=== PATIENT | male | born 1965 | race Caucasian/White ===

== ENCOUNTER 2021-10-15 03:56 | Inpatient (IN) | payer MEDICARE ==
[2021-10-15] MEDS ORDERED: HYDROmorphone 1 MG/ML 1 ML SYRINGE IVP STA (05:03)
[2021-10-15] MEDS ORDERED: AMPICILLIN-SULBACTAM 3 GM in SODIUM CHLORIDE 0.9% 100 ML IVPB STA (05:42)
[2021-10-15] MEDS ORDERED: SODIUM CHLORIDE 0.9% 1,000 ML IV STA (05:43)
[2021-10-15] MEDS ORDERED: MAG HYDROX/AL HYDROX/SIMETH 30 ML CUP PO PRN (06:10)
[2021-10-15] MEDS ORDERED: ACETAMINOPHEN TAB 325 MG TAB PO PRN (06:10)
[2021-10-15] MEDS ORDERED: NALOXONE 0.4 MG/ML 1 ML VIAL IV PRN (06:10)
--- NOTE | 2021-10-15 06:33 | ED ---
Skin/Abscess/FB HPI - General Chief complaint: Skin/Abscess/Foreign Body Stated complaint: rt facial swelling Time Seen by Provider: 10/15/21 04:28 Source: EMS Mode of arrival: EMS - History of Present Illness Initial comments: This patient is a 56-year-old man who presents as a transfer from the [facility]. The patient had gone there to be evaluated this evening for right-sided neck swelling and pain. The patient states that the symptoms had come on a little over one week ago. As a progressively get worse he went to see one of the local nose and throat specialists, . Patient was given prescription for oral antibiotic and prednisone. The patient was also to follow up for a computed tomography scan of the neck. His symptoms continued to progressively worsen and he went to the other facility tonight. Patient was then transferred here given the degree of swelling to his right neck to have further evaluation and treatment. MD complaint: abscess/boil -: days(s) Tetanus Up to Date: yes Location: neck Severity: moderate Quality: aching, constant Consistency: constant Improves with: none Worsens with: palpation Associated symptoms: denies other symptoms Treatments Prior to Arrival: none - Related Data Home Medications Medication Instructions Recorded Confirmed Albuterol Sulfate [Albuterol 2 puff PO RT-Q6H PRN 10/15/21 10/15/21 Sulfate Hfa] Aspirin EC [Ecotrin Low Dose] 81 mg PO DAILY 10/15/21 10/15/21 Buprenorphine HCl/Naloxone HCl 0.25 film SL 5XD 10/15/21 10/15/21 [Suboxone 8 mg-2 mg Sl Film] Fenofibrate 160 mg PO DAILY 10/15/21 10/15/21 Furosemide [Lasix] 40 mg PO DAILY 10/15/21 10/15/21 Gabapentin [Neurontin] 800 mg PO TID 10/15/21 10/15/21 Metoprolol Succinate [Toprol XL] 100 mg PO BID 10/15/21 10/15/21 Multivit-Min/FA/Lycopen/Lutein 1 tab PO DAILY 10/15/21 10/15/21 [Centrum Silver Men Tablet] Glady-3 Acid Ethyl Esters [Lovaza] 1 gm PO QID 10/15/21 10/15/21 Potassium Chloride ER [K-Dur 20] 20 meq PO DAILY 10/15/21 10/15/21 Promethazine [Phenergan] 25 mg PO Q6HR PRN 10/15/21 10/15/21 Sulfamethox-Tmp 800-160Mg [Bactrim 1 tab PO BID 10/15/21 10/15/21 DS 800-160 mg] predniSONE [Deltasone] 20 mg PO DAILY 10/15/21 10/15/21 sitaGLIPtin PHOSPHATE [Januvia] 100 mg PO DAILY 10/15/21 10/15/21 Allergies Allergy/AdvReac Type Severity Reaction Status Date / Time alcohol Allergy Unknown Verified 10/15/21 10:57 cefoxitin [From Mefoxin] Allergy Unknown Verified 10/15/21 10:57 cephalexin [From Keflex] Allergy Unknown Verified 10/15/21 10:57 egg Allergy Dyspnea Verified 10/15/21 10:57 honey Allergy Rash/Hives Verified 10/15/21 10:57 morphine Allergy Anaphylaxis Verified 10/15/21 10:57 Review of Systems ROS Statement: Those systems with pertinent positive or pertinent negative responses have been documented in the HPI. ROS Other: All systems not noted in ROS Statement are negative. Constitutional: Denies: fever, chills, weakness Eyes: Denies: eye pain, vision change ENT: Denies: ear pain, throat pain, dental pain, congestion Respiratory: Denies: cough, dyspnea, wheezes Cardiovascular: Denies: chest pain Gastrointestinal: Reports: nausea, vomiting, diarrhea. Denies: abdominal pain, constipation, hematemesis, melena Genitourinary: Denies: dysuria, hematuria Musculoskeletal: Denies: back pain Skin: Denies: as per HPI Neurological: Denies: headache Psychiatric: Reports: as per HPI. Denies: depression Hematological/Lymphatic: Reports: as per HPI Past Medical History Past Medical History: Diabetes Mellitus, Hyperlipidemia, Hypertension Additional Past Medical History / Comment(s): acute intermittent porphyria Neuropathy, Liver cirrohsis History of Any Multi-Drug Resistant Organisms: None Reported Past Surgical History: Appendectomy, Cholecystectomy, Orthopedic Surgery Past Psychological History: No Psychological Hx Reported Smoking Status: Current every day smoker Past Alcohol Use History: None Reported Past Drug Use History: None Reported - Past Family History Father Family Medical History: CVA/TIA Mother Family Medical History: Diabetes Mellitus, Hypertension Sister(s) Family Medical History: Cancer Additional Family Medical History / Comment(s): 2 sisters had breast cancer General Exam General appearance: alert, in no apparent distress Head exam: Present: atraumatic, normocephalic Eye exam: Present: normal appearance, PERRL, EOMI, periorbital swelling. Absent: scleral icterus, conjunctival injection ENT exam: Present: normal oropharynx, other (To the anterior right neck, there is proximally 5 cm inframandibular mass with adjacent soft tissue swelling.) Neck exam: Present: tenderness, full ROM. Absent: meningismus Respiratory exam: Present: normal lung sounds bilaterally. Absent: respiratory distress, wheezes, rales, chest wall tenderness Cardiovascular Exam: Present: regular rate, normal rhythm, normal heart sounds. Absent: systolic murmur, diastolic murmur GI/Abdominal exam: Present: soft. Absent: distended, tenderness, guarding, rebound, rigid, mass Extremities exam: Present: normal inspection, normal capillary refill. Absent: pedal edema, calf tenderness Back exam: Present: normal inspection. Absent: CVA tenderness (R), CVA tenderness (L) Neurological exam: Present: alert Skin exam: Present: warm, dry, intact, normal color. Absent: rash Course Vital Signs 10/15/21 10/15/21 04:02 06:18 Temperature 99.1 F Pulse Rate 72 67 Respiratory 16 16 Rate Blood Pressure 142/93 143/81 O2 Sat by Pulse 98 95 Oximetry Medical Decision Making - Medical Decision Making Patient is a 56-year-old man transferred here from outside hospital to have evaluation of neck mass with associated swelling. It appears to be abscess versus possible necrotic lymph node. In addition there is what appears to be some secondary parotiditis. Patient is started on antibiotics and case discussed with ENT. Patient will be admitted. Disposition Clinical Impression: Abscess of lymph node of neck, Parotiditis Disposition: ADMITTED IP TO THIS HOSP Is patient prescribed a controlled substance at d/c from ED?: No
[2021-10-15] MEDS: HYDROmorphone 1 MG/ML 1 ML SYRINGE IVP PRN ×4 (08:27→20:52)
[2021-10-15] MEDS: SODIUM CHLORIDE 0.9% 1,000 ML IV SCH ×2 (08:27→18:10)
[2021-10-15] MEDS: FAMOTIDINE 20 MG TAB PO SCH ×2 (08:27→20:52)
[2021-10-15] MEDS: AMPICILLIN-SULBACTAM 3 GM in SODIUM CHLORIDE 0.9% 100 ML IVPB SCH ×2 (11:55→18:06)
[2021-10-15] MEDS: LACTATED RINGERS 1,000 ML IV SCH (15:17)
[2021-10-15] MEDS ORDERED: PROMETHAZINE 25 MG TAB PO PRN (16:24)
[2021-10-15] MEDS ORDERED: ALBUTEROL NEBULIZED 2.5 MG/3 ML INHALATION PRN (16:24)
[2021-10-15] MEDS: ACETAMINOPHEN IV (For NPO) 1,000 MG in EMPTY BAG 1 BAG IVPB SCH (16:42)
[2021-10-15] MEDS: DEXAMETHASONE SOD PHOSPHATE 10 MG/ML 1 ML VIAL IVP SCH (16:43)
[2021-10-15 16:57] LABS: Glucose,Whole Blood 100 mg/dL (75-99)
[2021-10-15] MEDS: INSULIN ASPART (NovoLOG) 100 UNIT/ML VIAL SQ SCH ×2 (17:13→21:59)
--- NOTE | 2021-10-15 17:14 | HP ---
HISTORY AND PHYSICAL DATE OF SERVICE: 10/15/2021 CHIEF COMPLAINT: Facial swelling on the right side. HISTORY OF PRESENT ILLNESS: This 56-year-old gentleman with a past medical history of diabetes mellitus, hypertension, hyperlipidemia, had previous episodes of sialadenitis. Currently the patient has had swelling of the right side of the face with 11 days. Because of lack of improvement, the patient went to [facility] Emergency Room and was admitted for evaluation and treatment. The patient was also evaluated by Dr. Mark; worsening of the possibility of salivary calculus causing the swelling and subsequent infection. Patient was started on broad-spectrum IV antibiotics as well as steroids. There is no history of any fever, rigor or chills. PAST MEDICAL HISTORY: History of diabetes mellitus, prediabetes, hypertension, hyperlipidemia. HOME MEDICATIONS: Reviewed. They include multivitamins and Ecotrin low-dose. Doses and other medications are reviewed. ALLERGIES: INCLUDE _ HONEY. FAMILY HISTORY: History of CVA, TIA. SOCIAL HISTORY: History of smoking. REVIEW OF SYSTEMS: Fourteen-point review of systems negative except as mentioned earlier. PHYSICAL EXAMINATION: Pulse is 69, blood pressure 144/86, respiration 16. HEENT: Significant swelling of the face on the right side with thickened indurated and tender parotid salivary gland, and also swelling extending up to the periorbital area. NECK: Part of the swelling present. CARDIOVASCULAR: S1, S2 muffled. RESPIRATION: Clear to auscultation. ABDOMEN: Soft, nontender. NERVOUS SYSTEM: No focal deficit. SKIN: No ulcer, rash, bleeding. JOINTS: No active deforming arthropathy. LABS: Recent labs are not available. ASSESSMENT: 1. Acute right parotid enlargement with acute parotitis secondary to salivary gland calculus, possibly. 2. Diabetes mellitus, type 2. 3. Hypertension. 4. Hyperlipidemia. 5. History of chronic liver disease. RECOMMENDATIONS AND DISCUSSION: In this 56-year-old gentleman who presented with multiple complex medical issues, I would recommend to continue the current medications. Patient has been started on IV Unasyn at this time. Dexamethasone also has been started by Dr. Mark. I recommend Accu-Cheks. Continue the rest of medications. Pain management. See orders for further details. Prognosis is guarded because of multiple complex medical issues. IV fluids. STAT labs and repeat labs also will be ordered. Will follow the patient closely. Guarded prognosis. Further recommendations to follow. MMODL / IJN: [id number] / MTDD
[2021-10-15 17:42] LABS: Basophils # (A) 0.1 k/uL (0-0.2); Basophils % (A) 0 %; Eosinophils # (A) 0.1 k/uL (0-0.7); Eosinophils % (A) 1 %; HCT 47.8 % (39.0-53.0); HGB 16.3 gm/dL (13.0-17.5); Lymphocytes # (A) 1.9 k/uL (1.0-4.8); Lymphocytes % (A) 9 %; MCH 28.7 pg (25.0-35.0); MCHC 34.1 g/dL (31.0-37.0); MCV 84.2 fL (80.0-100.0); Mean Platelet Volume 7.3; Monocytes # (A) 1.3 k/uL (0-1.0); Monocytes % (A) 6 %; Neutrophils # (A) 17.6 k/uL (1.3-7.7); Neutrophils % (A) 83 %; Platelet Count 218 k/uL (150-450); RBC 5.68 m/uL (4.30-5.90); RDW 13.7 % (11.5-15.5); WBC 21.3 k/uL (3.8-10.6)
[2021-10-15 17:50] LABS: ALT 44 U/L (4-49); AST 45 U/L (17-59); African American GFR (CKD) >90 (>60 ml/min/1.73 sqM); Albumin 3.3 g/dL (3.5-5.0); Albumin/Globulin Ratio 1.1; Alkaline Phosphatase 131 U/L (38-126); Anion Gap 4 mmol/L; Blood Urea Nitrogen 18 mg/dL (9-20); Calcium 8.7 mg/dL (8.4-10.2); Carbon Dioxide 29 mmol/L (22-30); Chloride 101 mmol/L (98-107); Glucose 102 mg/dL (74-99); Non-African American GFR(CKD) >90 (>60 ml/min/1.73 sqM); Potassium 4.2 mmol/L (3.5-5.1); Sodium 134 mmol/L (137-145); Total Bilirubin 0.9 mg/dL (0.2-1.3); Total Protein 6.3 g/dL (6.3-8.2)
[2021-10-15 17:52] LABS: INR 1.1 (<1.2); Prothrombin Time 11.6 sec (9.0-12.0)
[2021-10-15] MEDS ORDERED: NON FORMULARY DRUG (Omega-3 Acid Ethyl Esters [Lovaza] 1 GM Capsule) PO SCH (18:00)
[2021-10-15] MEDS: KETOROLAC 15 MG/ML 1 ML VIAL IVP SCH (18:05)
[2021-10-15] MEDS: Buprenorphine Hcl/Naloxone Hcl [Suboxone 8 Mg-2 Mg Sl Film] 1 EACH Fil SUBLINGUAL SCH (18:06)
[2021-10-15] MEDS: HEPARIN SODIUM,PORCINE/PF 5,000 UNIT/0.5 ML SYRINGE SQ SCH (20:51)
[2021-10-15] MEDS: GABAPENTIN 400 MG CAP PO SCH (20:51)
[2021-10-15] MEDS: METOPROLOL SUCCINATE (ER) 100 MG TAB.ER.24H PO SCH (20:52)
[2021-10-15 21:56] LABS: Glucose,Whole Blood 192 mg/dL (75-99)
[2021-10-16] MEDS: LACTATED RINGERS 1,000 ML IV SCH ×5 (00:46→21:13)
[2021-10-16] MEDS: ACETAMINOPHEN IV (For NPO) 1,000 MG in EMPTY BAG 1 BAG IVPB SCH ×3 (00:46→12:24)
[2021-10-16] MEDS: DEXAMETHASONE SOD PHOSPHATE 10 MG/ML 1 ML VIAL IVP SCH ×3 (00:47→16:37)
[2021-10-16] MEDS: KETOROLAC 15 MG/ML 1 ML VIAL IVP SCH ×4 (00:47→17:37)
[2021-10-16] MEDS: Buprenorphine Hcl/Naloxone Hcl [Suboxone 8 Mg-2 Mg Sl Film] 1 EACH Fil SUBLINGUAL SCH ×5 (00:54→20:03)
[2021-10-16] MEDS: AMPICILLIN-SULBACTAM 3 GM in SODIUM CHLORIDE 0.9% 100 ML IVPB SCH ×4 (01:08→17:37)
--- NOTE | 2021-10-16 07:29 | CONS ---
CONSULTATION DATE OF CONSULTATION: 10/15/2021. REASON FOR CONSULTATION: Right neck/face swelling. HISTORY OF PRESENT ILLNESS: The patient is a 56-year-old male who was recently transferred from [facility] in [place] to [facility] for evaluation and treatment of right facial swelling. The patient states that approximately 10 days prior to going to the hospital in [place], he developed swelling and tenderness on the right side of his neck. The patient states that he has had this problem several times before and it resolved with antibiotic treatment. After several days, the swelling got worse and the patient subsequently went to the emergency room at [facility] in [place]. He was seen in the ER and referred to Ear, Nose, and Throat specialist in [place], [place]. The patient met with the Ear, Nose, and Throat specialist in [place], [place] and at that time was diagnosed with swelling of the right submandibular gland with possible stone. A CT scan of the neck confirmed the presence of a stone in the area of the right submandibular gland. However, it did not distinguish whether the stone was within the substance of the gland or whether it was located in the duct (Israel's duct). The patient was placed on oral antibiotics and prednisone. After several days of treatment, he was no better. Therefore, he returned to [facility]. Because they did not have an Ear, Nose, and Throat specialist on staff, the patient was subsequently transferred to [facility]. At the time the patient was seen in [facility], the ER doctor evaluated the patient and I was called at approximately 5:00 am on the morning of 10/15/21. The ER doctor stated that the patient had severe swelling of the right neck with extension into the right facial/parotid area. There did not appear to be any drainage. The CT scan that was performed in [place] did not show evidence of an abscess but did show evidence of cellulitis and a stone. I advised the ER doctor that he should admit the patient to the hospital under one of the hospitalists and immediately start the patient on an antibiotic. The patient was placed on Unasyn 3 g daily. At the present time, the patient is in significant discomfort. He has Dilaudid ordered 1 mg q.4 hours. He is able to handle his secretion and he is not having any difficulty breathing at this time. He denies being a diabetic, but states that he was told that he was prediabetic. However, he is not on any medications for diabetes. PAST MEDICAL HISTORY: Reveals multiple: ALLERGIES: INCLUDING VARIOUS FOOD ALLERGIES AND ALLERGIES TO MEFOXIN, KEFLEX, AND MORPHINE. HOME MEDICATIONS: Include albuterol, metoprolol, Neurontin and Lasix. REVIEW OF SYSTEMS: CARDIOVASCULAR system is positive for hypertension. 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 The remainder of review of systems unremarkable. PHYSICAL EXAMINATION: The patient is a 56-year-old male who is alert, cooperative and well-oriented to time and place. HEENT examination: Patient is normocephalic. Tympanic membranes are normal. Middle ear space is free of any fluid or infection. Pupils equal, round, react to light and accommodation. Extraocular movements within normal limits. Intranasal examination reveals moderate to severe septal deviation to the right with compensatory hypertrophy of inferior turbinates bilaterally. There is a moderate amount of mucus on the mucous membranes and draining down the posterior pharynx. Examination of oropharynx is unremarkable. Bimanual palpation of the floor of the mouth and the right submandibular gland does not reveal any significant fluctuance or masses. It is noted that the orifice of the right Longwood's duct is swollen completely shut. The left side is patent. Palpation of neck reveals the patient had severe swelling of the right neck in the submandibular region with some extension inferiorly and extension superiorly into the region of the right parotid gland. The area is firm. There is no evidence of any fluctuance, however. Despite deep palpation of the gland, I am not able to express any purulent material from the right Israel's duct on the floor of the mouth. Cranial nerves 2 through 12 and remainder of the head and neck exam is unremarkable. CHEST/CARDIOVASCULAR: Both lung llamas are clear. The patient is in regular sinus rhythm S1, S2 are present. No murmurs, S3s or S4. ABDOMEN: No evidence of any masses, megaly or tenderness. The abdomen is soft. The remainder of physical exam is unremarkable. ASSESSMENT: 1. Right neck mass with right submandibular sialadenitis and sialolithiasis. 2. Right facial cellulitis. PLAN: In addition to the intravenous antibiotics, we are going to add a regimen of dexamethasone IV as described in the orders. We will also place the patient on Ofirmev 1000 mg IV q.6h to help relieve some of his pain. He can have a full liquid diet, which can be advanced as tolerated. Dr. Trammell will be seeing the patient to cover his medical problems. I will see the patient tomorrow(10/16/21) and re-evaluate him. MMJULIOL / DINESH: [id number] / MTDD
[2021-10-16] MEDS ORDERED: PANTOPRAZOLE 40 MG TABLET PO SCH (07:30)
[2021-10-16 08:40] LABS: Basophils % (A) 0 %; Eosinophils % (A) 0 %; HCT 50.2 % (39.0-53.0); HGB 16.9 gm/dL (13.0-17.5); Lymphocytes # (A) 0.8 k/uL (1.0-4.8); Lymphocytes % (A) 5 %; MCH 28.6 pg (25.0-35.0); MCHC 33.7 g/dL (31.0-37.0); MCV 84.7 fL (80.0-100.0); Mean Platelet Volume 7.7; Monocytes # (A) 0.3 k/uL (0-1.0); Monocytes % (A) 2 %; Neutrophils # (A) 14.8 k/uL (1.3-7.7); Neutrophils % (A) 92 %; Platelet Count 264 k/uL (150-450); RBC 5.92 m/uL (4.30-5.90); RDW 13.4 % (11.5-15.5)
[2021-10-16 09:13] LABS: African American GFR (CKD) >90 (>60 ml/min/1.73 sqM); Anion Gap 7 mmol/L; Blood Urea Nitrogen 20 mg/dL (9-20); Calcium 8.8 mg/dL (8.4-10.2); Carbon Dioxide 26 mmol/L (22-30); Chloride 104 mmol/L (98-107); Glucose 132 mg/dL (74-99); Non-African American GFR(CKD) >90 (>60 ml/min/1.73 sqM); Sodium 137 mmol/L (137-145)
[2021-10-16 10:48] LABS: Glucose,Whole Blood 141 mg/dL (75-99)
[2021-10-16 11:44] LABS: Glucose,Whole Blood 158 mg/dL (75-99)
[2021-10-16] MEDS: INSULIN ASPART (NovoLOG) 100 UNIT/ML VIAL SQ SCH ×4 (12:17→20:34)
[2021-10-16] MEDS: ASPIRIN 81 MG PO SCH (12:18)
[2021-10-16] MEDS: FAMOTIDINE 20 MG TAB PO SCH ×2 (12:18→20:33)
[2021-10-16] MEDS: GABAPENTIN 400 MG CAP PO SCH ×3 (12:18→20:34)
[2021-10-16] MEDS: FUROSEMIDE 40 MG TAB PO SCH (12:18)
[2021-10-16] MEDS: FENOFIBRATE 160 MG TAB PO SCH (12:18)
[2021-10-16] MEDS: LINAGLIPTIN 5 MG TABLET PO SCH (12:18)
[2021-10-16] MEDS: HEPARIN SODIUM,PORCINE/PF 5,000 UNIT/0.5 ML SYRINGE SQ SCH ×2 (12:18→20:33)
[2021-10-16] MEDS: METOPROLOL SUCCINATE (ER) 100 MG TAB.ER.24H PO SCH ×2 (12:19→20:33)
[2021-10-16] MEDS: MULTIVITAMINS, THERA 1 EACH TAB PO SCH (12:23)
[2021-10-16] MEDS: POTASSIUM CHLORIDE ER 20 MEQ TAB.ER PO SCH (12:23)
--- NOTE | 2021-10-16 13:12 | P.PN ---
Subjective Progress Note Date: 10/16/21 This is a 56-year-old male who was recently admitted with swelling of the right side of the face over the last 11 days and not improving with failure of outpatient and was admitted for further evaluation. Patient being closely monitored and also evaluated by Dr. Mark ENT with the possibility of a sergio ivary calculus causing the swelling and subsequent infection. Patient is maintained on IV antibiotics along with IV steroids and will continue. Patient continues with right facial swelling although feels has significantly improved. Patient denies difficulty in breathing or swallowing and denies any shortness of breath. Patient is afebrile. Patient denies any chest pain. Review of systems: Constitutional: No reports of fatigue, fever, or chills, reports right facial swelling improved Cardiovascular: No reports of chest pain or palpitations Respiratory: No reports of shortness of breath or cough GI: No reports of nausea, no reports of of vomiting : No reports of dysuria or retention Neurovascular: No reports of generalized weakness All medications have been reviewed Active Medications Acetaminophen (Acetaminophen Tab 325 Mg Tab) 650 mg PO Q6HR PRN PRN Reason: Mild Pain or Fever > 100.5 Al Hydroxide/Mg Hydroxide (Mag Hydrox/Al Hydrox/Simeth 30 Ml Cup) 15 ml PO Q6HR PRN PRN Reason: Indigestion Albuterol Sulfate (Albuterol Nebulized 2.5 Mg/3 Ml) 2.5 mg INHALATION RT-Q6H PRN PRN Reason: Shortness Of Breath Aspirin (Aspirin 81 Mg) 81 mg PO DAILY [facility] Last Admin: 10/16/21 12:18 Dose: Not Given Documented by: Dexamethasone Sodium Phosphate (Dexamethasone Sod Phosphate 10 Mg/Ml 1 Ml Vial) 5 mg IVP Q8H [facility] Stop: 10/17/21 08:01 Dexamethasone Sodium Phosphate (Dexamethasone Sod Phosphate 4 Mg/Ml 1 Ml Vial) 2 mg IVP Q8H [facility] Stop: 10/18/21 08:01 Famotidine (Famotidine 20 Mg Tab) 20 mg PO BID [facility] Last Admin: 10/16/21 12:18 Dose: Not Given Documented by: Fenofibrate (Fenofibrate 160 Mg Tab) 160 mg PO DAILY [facility] Last Admin: 10/16/21 12:18 Dose: Not Given Documented by: Furosemide (Furosemide 40 Mg Tab) 40 mg PO DAILY [facility] Last Admin: 10/16/21 12:18 Dose: Not Given Documented by: Gabapentin (Gabapentin 400 Mg Cap) 800 mg PO TID [facility] Last Admin: 10/16/21 12:18 Dose: Not Given Documented by: Heparin Sodium (Porcine) (Heparin Sodium,Porcine/Pf 5,000 Unit/0.5 Ml Syringe) 5,000 unit SQ Q12HR [facility] Last Admin: 10/16/21 12:18 Dose: Not Given Documented by: Hydromorphone HCl (Hydromorphone 0.5 Mg/0.5 Ml Syringe) 0.5 mg IVP Q3HR PRN PRN Reason: Moderate Pain Hydromorphone HCl (Hydromorphone 1 Mg/Ml 1 Ml Syringe) 1 mg IVP Q3HR PRN PRN Reason: Severe Pain Last Admin: 10/15/21 20:52 Dose: 1 mg Documented by: Ampicillin Sodium/Sulbactam (Sodium 3 gm/ Sodium Chloride) 100 mls @ 200 mls/hr IVPB Q6H [facility]; Protocol Last Admin: 10/16/21 12:48 Dose: 200 mls/hr Documented by: Lactated Ringer's (Lactated Ringers) 1,000 mls @ 150 mls/hr IV .Q6H40M [facility] Last Admin: 10/16/21 05:09 Dose: 150 mls/hr Documented by: Insulin Aspart (Insulin Aspart (Novolog) 100 Unit/Ml Vial) 0 unit SQ ACHS [facility]; Protocol Last Admin: 10/16/21 12:24 Dose: Not Given Documented by: Ketorolac Tromethamine (Ketorolac 15 Mg/Ml 1 Ml Vial) 15 mg IVP Q6HR [facility] Stop: 10/18/21 16:25 Last Admin: 10/16/21 12:24 Dose: Not Given Documented by: Linagliptin (Linagliptin 5 Mg Tablet) 5 mg PO DAILY [facility] Last Admin: 10/16/21 12:18 Dose: Not Given Documented by: Metoprolol Succinate (Metoprolol Succinate (Er) 100 Mg Tab.Er.24h) 100 mg PO BID [facility] Last Admin: 10/16/21 12:19 Dose: Not Given Documented by: Multivitamins (Multivitamins, Thera 1 Each Tab) 1 each PO DAILY [facility] Last Admin: 10/16/21 12:23 Dose: Not Given Documented by: Naloxone HCl (Naloxone 0.4 Mg/Ml 1 Ml Vial) 0.2 mg IV Q2M PRN PRN Reason: Opioid Reversal Buprenorphine Hcl/Naloxone Hcl [ Suboxone 8 Mg-2 Mg Sl Film] 1 Each Rodrigo 0.25 film SUBLINGUAL 5XD [facility] Last Admin: 10/16/21 12:25 Dose: Not Given Documented by: Pantoprazole Sodium (Pantoprazole 40 Mg Tablet) 40 mg PO AC-BRKFST [facility] Last Admin: 10/16/21 12:18 Dose: Not Given Documented by: Potassium Chloride (Potassium Chloride Er 20 Meq Tab.Er) 20 meq PO DAILY [facility] Last Admin: 10/16/21 12:23 Dose: Not Given Documented by: Promethazine HCl (Promethazine 25 Mg Tab) 25 mg PO Q6HR PRN PRN Reason: ALLERGIES/MOTION SICKNESS Temazepam (Temazepam 15 Mg Cap) 15 mg PO HS PRN PRN Reason: Insomnia PHYSICAL EXAMINATION: GENERAL: The patient is alert and oriented x4, Well developed, well nourished. HEENT: Pupils are round and equally reacting to light. EOMI. no scleral icterus. No conjunctival pallor. Normocephalic, atraumatic. No pharyngeal erythema. No thyromegaly. CARDIOVASCULAR: S1 and S2 muffled PULMONARY: diminished breath sounds bilaterally with no wheezing or rhonchi noted. ABDOMEN: soft. Nontender on exam. obese. non-distended, normoactive bowel sounds. No palpable organomegaly. MUSCULOSKELETAL: No joint swelling or deformity. EXTREMITIES: No cyanosis, clubbing, or pedal edema. Right hip surgical dressing is intact NEUROLOGICAL: Gross neurological examination did not reveal any focal deficits. Diffuse weakness SKIN: No rashes. Assessment: Acute right parotid enlargement with acute parotitis secondary to salivary gland calculus, possibly Leukocytosis, secondary to above Diabetes mellitus type 2 Hypertension Hyperlipidemia History of chronic liver disease GI prophylaxis DVT prophylaxis Full code Plan: Recommend to continue with current medications and management of antibiotics and steroids with ENT following closely. Recommend Accu-Cheks before meals and at bedtime as patient is on high-dose steroids and does have history of diabetes mellitus. Patient is continued on IV Unasyn and will continue.. Will continue on IV antibiotics and closely monitor for improvement in swelling and discuss with ENT about discharge planning. Patient is anxious about getting home to his dogs and would like to be discharged. Patient continues with significant swelling of the right neck and face. Recommend to continue with another 24 hours of IV antibiotics and steroids and evaluate in the morning. ENT to reevaluate today. Recommend repeat labs in the morning with possible discharge in 24-48 hours. The impression and plan of care has been dictated by Luann Yanez, nurse practitioner as directed. MD Mukesh I have performed a history and examination and MDM of this patient, discussed the same with the dictator, and agree with the dictator's assessment and plan as written ,documented as a scribe. Based on total visit time, I have performed more than 50% of the visit. Any additional findings or plans will be noted. Objective - Vital Signs Vital signs: Vital Signs Temp 97.9 F 10/16/21 04:56 Pulse 56 L 10/16/21 04:56 Resp 18 10/16/21 04:56 BP 143/77 10/16/21 04:56 Pulse Ox 94 L 10/16/21 04:56 Intake & Output 10/15/21 10/16/21 10/16/21 18:59 06:59 18:59 Intake Total 1550 2800 118 Balance 1550 2800 118 Weight 106.594 kg Intake: Intake, IV Titration 1550 2800 Amount ACETAMINOPHEN IV (For NPO 100 800 ) 1,000 mg In Empty Bag 1 bag @ 400 mls/hr IVPB Q6HR [facility] Rx#:[id number] Ampicillin-Sulbactam 3 gm 200 200 In Sodium Chloride 0.9% 100 ml @ 200 mls/hr IVPB Q6H [facility] Rx#:[id number] Lactated Ringers 1,000 ml 450 1800 @ 150 mls/hr IV .Q6H40M [facility] Rx#:[id number] Sodium Chloride 0.9% 1, 800 000 ml @ 130 mls/hr IV . Q7H42M [facility] Rx#:[id number] Oral 118 Other: Voiding Method Toilet # Voids 2 4 - Labs CBC & Chem 7: 10/16/21 06:30 10/16/21 06:07 Labs: Abnormal Lab Results - Last 24 Hours (Table) 10/15/21 10/15/21 10/15/21 Range/Units 16:55 17:19 17:19 WBC 21.3 H (3.8-10.6) k/uL RBC (4.30-5.90) m/uL Neutrophils # 17.6 H (1.3-7.7) k/uL Lymphocytes # (1.0-4.8) k/uL Monocytes # 1.3 H (0-1.0) k/uL Sodium 134 L (137-145) mmol/L Glucose 102 H (74-99) mg/dL POC Glucose (mg/dL) 100 H (75-99) mg/dL Alkaline Phosphatase 131 H (38-126) U/L Albumin 3.3 L (3.5-5.0) g/dL 10/15/21 10/16/21 10/16/21 Range/Units 21:54 06:07 06:30 WBC 16.0 H (3.8-10.6) k/uL RBC 5.92 H (4.30-5.90) m/uL Neutrophils # 14.8 H (1.3-7.7) k/uL Lymphocytes # 0.8 L (1.0-4.8) k/uL Monocytes # (0-1.0) k/uL Sodium (137-145) mmol/L Glucose 132 H (74-99) mg/dL POC Glucose (mg/dL) 192 H (75-99) mg/dL Alkaline Phosphatase (38-126) U/L Albumin (3.5-5.0) g/dL 10/16/21 10/16/21 Range/Units 07:31 11:43 WBC (3.8-10.6) k/uL RBC (4.30-5.90) m/uL Neutrophils # (1.3-7.7) k/uL Lymphocytes # (1.0-4.8) k/uL Monocytes # (0-1.0) k/uL Sodium (137-145) mmol/L Glucose (74-99) mg/dL POC Glucose (mg/dL) 141 H 158 H (75-99) mg/dL Alkaline Phosphatase (38-126) U/L Albumin (3.5-5.0) g/dL
[2021-10-16] MEDS: HYDROmorphone 0.5 MG/0.5 ML SYRINGE IVP PRN (14:16)
[2021-10-16 17:06] LABS: Glucose,Whole Blood 150 mg/dL (75-99)
--- NOTE | 2021-10-16 17:13 | CONS ---
CONSULTATION DATE OF SERVICE: 10/16/2021. SUBJECTIVE: Vital signs are stable. Patient remains afebrile. The patient states that he feels much better and he feels that the swelling has gone down significantly. He is able to open his mouth, swallow, and now he has an appetite. I advised the patient that he can order a regular diet if he so chooses. I also advised the patient that he may eventually notice a brackish taste in his mouth as the right submandibular gland begins to drain. OBJECTIVE: HEENT: Patient is normocephalic. Tympanic membranes are normal. Examination of the right neck-facial/right submandibular area and the right facial area reveals that the swelling has decreased by at least 25% to 30%, especially in the region of the right parotid gland. There still remains a firm, nonfluctuant, moderately tender, swollen right submandibular gland. Intraoral examination reveals that the orifice of the right Decker's duct has reduced swelling. The remainder of the head and neck exam and physical exam is unchanged since last visit. ASSESSMENT: Right submandibular sialadenitis/sialolithiasis, right facial/right neck swelling. PLAN: We will continue with the intravenous antibiotic, Unasyn, and the current dexamethasone regimen. I have ordered a repeat CT scan of the right neck to be performed tomorrow 10/17/2021. I will continue to evaluate the patient on a daily basis. TERENCE / DINESH: [id number] / MTDD
[2021-10-16 20:02] LABS: Glucose,Whole Blood 182 mg/dL (75-99)
[2021-10-16] MEDS: TEMAZEPAM 15 MG CAP PO PRN (21:12)
[2021-10-17] MEDS: DEXAMETHASONE SOD PHOSPHATE 10 MG/ML 1 ML VIAL IVP SCH ×2 (00:50→08:20)
[2021-10-17] MEDS: KETOROLAC 15 MG/ML 1 ML VIAL IVP SCH ×4 (00:51→17:00)
[2021-10-17] MEDS: AMPICILLIN-SULBACTAM 3 GM in SODIUM CHLORIDE 0.9% 100 ML IVPB SCH ×4 (00:51→17:00)
[2021-10-17] MEDS: Buprenorphine Hcl/Naloxone Hcl [Suboxone 8 Mg-2 Mg Sl Film] 1 EACH Fil SUBLINGUAL SCH ×5 (00:56→21:15)
[2021-10-17] MEDS: LACTATED RINGERS 1,000 ML IV SCH ×3 (05:33→21:15)
[2021-10-17 07:44] LABS: Glucose,Whole Blood 124 mg/dL (75-99)
[2021-10-17] MEDS: INSULIN ASPART (NovoLOG) 100 UNIT/ML VIAL SQ SCH ×4 (07:46→21:14)
[2021-10-17 09:13] LABS: Basophils # (A) 0.03 X 10*3/uL (0.00-0.10); Basophils % (A) 0.2 %; Eosinophils # (A) 0 X 10*3/uL (0.04-0.35); Eosinophils % (A) 0 %; HGB 15.3 g/dL (13.0-17.0); Immature Grans, Automated 0.5 %; Lymphocytes # (A) 1.62 X 10*3/uL (0.90-5.00); Lymphocytes % (A) 8.6 %; MCH 27.5 pg (27.0-32.0); MCV 80.8 fL (80.0-97.0); Mean Platelet Volume 10.2 fL (9.5-12.2); Monocytes # (A) 0.76 X 10*3/uL (0.20-1.00); Monocytes % (A) 4.1 %; NRBC Per 100 WBC 0 /100 WBCS (0.0-0.0); Neutrophils # (A) 16.25 X 10*3/uL (1.80-7.70); Neutrophils % (A) 86.6 %; Platelet Count 268 X 10*3/uL (140-440); RBC 5.57 X 10*6/uL (4.40-5.60); RDW 12.9 % (11.5-14.5); WBC 18.76 X 10*3/uL (4.50-10.00)
[2021-10-17 09:24] LABS: African American GFR (CKD) 120.6 (60.0-200.0); Anion Gap 10.4 mmol/L (10.00-18.00); BUN/Creat Ratio 30.71 Ratio (12.00-20.00); Blood Urea Nitrogen 21.5 mg/dL (9.0-27.0); Carbon Dioxide 26.6 mmol/L (20.0-27.5)
[2021-10-17] MEDS: LINAGLIPTIN 5 MG TABLET PO SCH (09:35)
[2021-10-17] MEDS: FENOFIBRATE 160 MG TAB PO SCH (09:35)
[2021-10-17] MEDS: POTASSIUM CHLORIDE ER 20 MEQ TAB.ER PO SCH (09:36)
[2021-10-17] MEDS: ASPIRIN 81 MG PO SCH (09:36)
[2021-10-17] MEDS: GABAPENTIN 400 MG CAP PO SCH ×3 (09:36→21:14)
[2021-10-17] MEDS: FAMOTIDINE 20 MG TAB PO SCH ×2 (09:36→21:14)
[2021-10-17] MEDS: MULTIVITAMINS, THERA 1 EACH TAB PO SCH (09:36)
[2021-10-17] MEDS: METOPROLOL SUCCINATE (ER) 100 MG TAB.ER.24H PO SCH ×2 (09:37→21:14)
[2021-10-17] MEDS: FUROSEMIDE 40 MG TAB PO SCH (09:37)
[2021-10-17] MEDS: HEPARIN SODIUM,PORCINE/PF 5,000 UNIT/0.5 ML SYRINGE SQ SCH ×2 (09:39→21:13)
[2021-10-17 11:57] LABS: Glucose,Whole Blood 127 mg/dL (75-99)
--- NOTE | 2021-10-17 15:00 | CT ---
EXAMINATION TYPE: CT neck chest w con DATE OF EXAM: 10/17/2021 7:44 AM COMPARISON: Previous exam from outside institution dated 10/15/2021 CT neck HISTORY: Rt submandibular gland sialolithiasis/swelling CT DLP: 1488.10 mGycm Automated exposure control for dose reduction was used. CONTRAST: CT scan of the neck is performed following with IV Contrast, patient injected with 100 mL of Isovue 3 00. Axial images are obtained, coronal and sagittal reformatted images are reviewed. FINDINGS: Airway: No gross abnormality seen. Parotid/submandibular glands: There is a focal collection at the level inferior to right parotid gla nd with irregular margins, central low-attenuation, rim-enhancing measuring approximately 5.1 x 3.4 x 3.8 cm. There are large calculi present within the submandibular gland one of which measures 1 cm in AP dimension, second measures approximately 5 to 6 mm on axial image 58, third calcification measure s approximately 3 to 4 mm. There is some surrounding inflammatory change in the subcutaneous fat. Juan C e locally prominent lymph nodes are present. Carotid/Vascular Structures: Aorta is patent. Carotid arteries enhance normally. Osseous Structures: Skull base is normal. Degenerative disc changes are present in the visualized cer vical spine. Chest: The lungs show emphysematous changes at the upper lobes, no pleural or pericardial effusion. T here is no mediastinal, axillar, or hilar adenopathy. No supraclavicular adenopathy. Thyroid gland sh ows a symmetric appearance. Patient is post cholecystectomy, there is prominence of the common bile duct likely due to postcholec ystectomy change IMPRESSION: Findings consistent with right submandibular gland sialolithiasis and possibly abscess d ue to obstruction, follow-up recommended to exclude underlying tumor, there is local reactive adenopa thy suspected.
--- NOTE | 2021-10-17 15:39 | P.PN ---
Subjective Progress Note Date: 10/17/21 This is a 56-year-old male who was recently admitted with swelling of the right side of the face over the last 11 days and not improving with failure of outpatient and was admitted for further evaluation. Patient being closely monitored and also evaluated by Dr. Mark ENT with the possibility of a sergio ivary calculus causing the swelling and subsequent infection. Patient is maintained on IV antibiotics along with IV steroids and will continue. Patient continues with right facial swelling although feels has significantly improved. Patient denies difficulty in breathing or swallowing and denies any shortness of breath. Patient is afebrile. Patient denies any chest pain. 10/17/2021 Patient is seen and evaluated in follow-up this morning continues with right neck swelling and is being closely monitored by ENT Dr. Mark. Repeat CT of the neck and chest is ordered and currently pending. Patient continues on IV Zosyn along with high-dose IV steroids and will continue. Patient denies any difficulty in swallowing or breathing and is able to eat with no difficulties. Patient reports to some thin drainage noted from the right side in his mouth although nothing significant. Patient continues to request to go home. WBC continues to be elevated at 18.76 with a possible component of steroid-induced elevation as well. Blood sugars are being monitored and have been within normal limits. Patient is afebrile denies any chest pain or shortness of breath. Review of systems: Constitutional: No reports of fatigue, fever, or chills, reports right facial swelling improved Cardiovascular: No reports of chest pain or palpitations Respiratory: No reports of shortness of breath or cough GI: No reports of nausea, no reports of of vomiting : No reports of dysuria or retention Neurovascular: No reports of generalized weakness All medications have been reviewed Active Medications Acetaminophen (Acetaminophen Tab 325 Mg Tab) 650 mg PO Q6HR PRN PRN Reason: Mild Pain or Fever > 100.5 Al Hydroxide/Mg Hydroxide (Mag Hydrox/Al Hydrox/Simeth 30 Ml Cup) 15 ml PO Q6HR PRN PRN Reason: Indigestion Albuterol Sulfate (Albuterol Nebulized 2.5 Mg/3 Ml) 2.5 mg INHALATION RT-Q6H PRN PRN Reason: Shortness Of Breath Aspirin (Aspirin 81 Mg) 81 mg PO DAILY [facility] Last Admin: 10/17/21 09:36 Dose: 81 mg Documented by: Dexamethasone Sodium Phosphate (Dexamethasone Sod Phosphate 4 Mg/Ml 1 Ml Vial) 2 mg IVP Q8H [facility] Stop: 10/18/21 08:01 Famotidine (Famotidine 20 Mg Tab) 20 mg PO BID [facility] Last Admin: 10/17/21 09:36 Dose: 20 mg Documented by: Fenofibrate (Fenofibrate 160 Mg Tab) 160 mg PO DAILY [facility] Last Admin: 10/17/21 09:35 Dose: 160 mg Documented by: Furosemide (Furosemide 40 Mg Tab) 40 mg PO DAILY [facility] Last Admin: 10/17/21 09:37 Dose: 40 mg Documented by: Gabapentin (Gabapentin 400 Mg Cap) 800 mg PO TID [facility] Last Admin: 10/17/21 09:36 Dose: 800 mg Documented by: Heparin Sodium (Porcine) (Heparin Sodium,Porcine/Pf 5,000 Unit/0.5 Ml Syringe) 5,000 unit SQ Q12HR [facility] Last Admin: 10/17/21 09:39 Dose: Not Given Documented by: Hydromorphone HCl (Hydromorphone 0.5 Mg/0.5 Ml Syringe) 0.5 mg IVP Q3HR PRN PRN Reason: Moderate Pain Last Admin: 10/16/21 14:16 Dose: 0.5 mg Documented by: Hydromorphone HCl (Hydromorphone 1 Mg/Ml 1 Ml Syringe) 1 mg IVP Q3HR PRN PRN Reason: Severe Pain Last Admin: 10/15/21 20:52 Dose: 1 mg Documented by: Ampicillin Sodium/Sulbactam (Sodium 3 gm/ Sodium Chloride) 100 mls @ 200 mls/hr IVPB Q6H [facility]; Protocol Last Admin: 10/17/21 12:21 Dose: 200 mls/hr Documented by: Lactated Ringer's (Lactated Ringers) 1,000 mls @ 150 mls/hr IV .Q6H40M [facility] Last Admin: 10/17/21 12:23 Dose: 150 mls/hr Documented by: Insulin Aspart (Insulin Aspart (Novolog) 100 Unit/Ml Vial) 0 unit SQ ACHS [facility]; Protocol Last Admin: 10/17/21 12:00 Dose: Not Given Documented by: Ketorolac Tromethamine (Ketorolac 15 Mg/Ml 1 Ml Vial) 15 mg IVP Q6HR [facility] Stop: 10/18/21 16:25 Last Admin: 10/17/21 12:21 Dose: 15 mg Documented by: Linagliptin (Linagliptin 5 Mg Tablet) 5 mg PO DAILY [facility] Last Admin: 10/17/21 09:35 Dose: 5 mg Documented by: Metoprolol Succinate (Metoprolol Succinate (Er) 100 Mg Tab.Er.24h) 100 mg PO BID [facility] Last Admin: 10/17/21 09:37 Dose: 100 mg Documented by: Multivitamins (Multivitamins, Thera 1 Each Tab) 1 each PO DAILY [facility] Last Admin: 10/17/21 09:36 Dose: 1 each Documented by: Naloxone HCl (Naloxone 0.4 Mg/Ml 1 Ml Vial) 0.2 mg IV Q2M PRN PRN Reason: Opioid Reversal Buprenorphine Hcl/Naloxone Hcl [ Suboxone 8 Mg-2 Mg Sl Film] 1 Each Rodrigo 0.25 film SUBLINGUAL 5XD [facility] Last Admin: 10/17/21 11:30 Dose: Not Given Documented by: Potassium Chloride (Potassium Chloride Er 20 Meq Tab.Er) 20 meq PO DAILY [facility] Last Admin: 10/17/21 09:36 Dose: 20 meq Documented by: Promethazine HCl (Promethazine 25 Mg Tab) 25 mg PO Q6HR PRN PRN Reason: ALLERGIES/MOTION SICKNESS Temazepam (Temazepam 15 Mg Cap) 15 mg PO HS PRN PRN Reason: Insomnia Last Admin: 10/16/21 21:12 Dose: 15 mg Documented by: PHYSICAL EXAMINATION: GENERAL: The patient is alert and oriented x4, Well developed, well nourished. HEENT: Pupils are round and equally reacting to light. EOMI. no scleral icterus. No conjunctival pallor. Normocephalic, atraumatic. No pharyngeal erythema. No thyromegaly. Significant right neck bulging and swelling noted, facial swelling significantly improved CARDIOVASCULAR: S1 and S2 muffled PULMONARY: diminished breath sounds bilaterally with no wheezing or rhonchi noted. ABDOMEN: soft. Nontender on exam. obese. non-distended, normoactive bowel sounds. No palpable organomegaly. MUSCULOSKELETAL: No joint swelling or deformity. EXTREMITIES: No cyanosis, clubbing, or pedal edema. NEUROLOGICAL: Gross neurological examination did not reveal any focal deficits. SKIN: No rashes. Assessment: Acute right parotid enlargement with acute parotitis secondary to right submandibular gland sialolithiasis and possible abscess due to obstruction Leukocytosis, secondary to above Diabetes mellitus type 2 Hypertension Hyperlipidemia History of chronic liver disease GI prophylaxis DVT prophylaxis Full code Plan: Recommend to continue with current medications and management of antibiotics and steroids with ENT following closely. Recommend Accu-Cheks before meals and at bedtime as patient is on high-dose steroids and does have history of diabetes mellitus. Patient is continued on IV Unasyn and will continue.. Will continue on IV antibiotics and closely monitor for improvement in swelling. Patient continues with significant swelling of the right neck and facial swelling has significantly improved. Patient is requesting to go home. CT of the neck and chest shows findings consistent with right submandibular gland sialolithiasis and possible abscess due to obstruction with follow-up recommended to exclude underlying tumor and there is local reactive adenopathy suspected. After discussing with ENT Dr. Mark there are no plans for discharge at this time and patient will likely need surgical intervention for removal of the stone on the right side. Patient will be continued on IV antibiotics and made nothing by mouth at midnight and will await surgical report. Recommend repeat labs in the morning. Prognosis is guarded. The impression and plan of care has been dictated by Luann Yanez, nurse practitioner as directed. MD Gael I have performed a history and examination and MDM of this patient, discussed the same with the dictator, and agree with the dictator's assessment and plan as written ,documented as a scribe. Based on total visit time, I have performed more than 50% of the visit. Any additional findings or plans will be noted. Objective - Vital Signs Vital signs: Vital Signs Temp 97.7 F 10/17/21 05:00 Pulse 50 L 10/17/21 05:00 Resp 18 10/17/21 05:00 BP 164/84 10/17/21 05:00 Pulse Ox 92 L 10/17/21 05:00 Intake & Output 10/16/21 10/17/21 10/17/21 18:59 06:59 18:59 Intake Total 355 Balance 355 Intake: Oral 355 Other: Voiding Method Toilet # Voids 4 2 # Bowel Movements 1 - Labs CBC & Chem 7: 10/17/21 05:48 10/17/21 05:48 Labs: Abnormal Lab Results - Last 24 Hours (Table) 10/16/21 10/16/21 10/16/21 Range/Units 06:07 06:30 07:31 WBC 16.0 H (3.8-10.6) k/uL RBC 5.92 H (4.30-5.90) m/uL Neutrophils # 14.8 H (1.3-7.7) k/uL Lymphocytes # 0.8 L (1.0-4.8) k/uL Glucose 132 H (74-99) mg/dL POC Glucose (mg/dL) 141 H (75-99) mg/dL 10/16/21 10/16/21 10/16/21 Range/Units 11:43 17:04 19:59 WBC (3.8-10.6) k/uL RBC (4.30-5.90) m/uL Neutrophils # (1.3-7.7) k/uL Lymphocytes # (1.0-4.8) k/uL Glucose (74-99) mg/dL POC Glucose (mg/dL) 158 H 150 H 182 H (75-99) mg/dL 10/17/21 Range/Units 07:41 WBC (3.8-10.6) k/uL RBC (4.30-5.90) m/uL Neutrophils # (1.3-7.7) k/uL Lymphocytes # (1.0-4.8) k/uL Glucose (74-99) mg/dL POC Glucose (mg/dL) 124 H (75-99) mg/dL Microbiology - Last 24 Hours (Table) 10/15/21 17:19 Blood Culture - Preliminary Blood No Growth after 24 hours
[2021-10-17] MEDS: DEXAMETHASONE SOD PHOSPHATE 4 MG/ML 1 ML VIAL IVP SCH (16:51)
[2021-10-17 16:53] LABS: Glucose,Whole Blood 183 mg/dL (75-99)
[2021-10-17] MEDS: HYDROmorphone 1 MG/ML 1 ML SYRINGE IVP PRN (17:01)
--- NOTE | 2021-10-17 19:15 | PN ---
PROGRESS NOTE DATE OF SERVICE: 10/17/2021 SUBJECTIVE: Vital signs are stable. Patient remains afebrile. A CT scan was performed this a.m. of the patient's right neck which shows evidence of cellulitis of the right neck and a probable right submandibular abscess. The abscess appears to be located just lateral to the gland. It does not appear to extend into the parapharyngeal or other deep neck spaces. It was discussed with the patient that at this point it would be best to proceed with incision and drainage of this right submandibular abscess under general anesthesia. OBJECTIVE: HEENT: Patient is normocephalic. Tympanic membranes are normal. Examination of the right facial/right neck area reveals that the right facial swelling and cellulitis have essentially resolved, but there is a large right submandibular mass which most likely represents the abscess. The mass is just below the inferior edge of the mandible. The remainder of the head and neck exam is unremarkable. ASSESSMENT: Right facial cellulitis/right submandibular abscess, submandibular sialoadenitis, right submandibular sialolithiasis. PLAN: The patient is scheduled to undergo external excision and drainage of a right submandibular abscess under general anesthesia. The stone which appears to be located in the right Israel's duct will not be addressed at this time. For surgical reasons it is not appropriate to operate on both a contaminated area and a clean area. That is to say, it would be inappropriate to operate intraorally(a dirty site) to remove a stone and at the same time operate on the neck(a clean site) for the right submandibular abscess. Doing so would certainly cross-contaminate the organisms of the mouth into the right neck. Therefore, the removal of the stone will be addressed at a later date. The patient is scheduled for surgery on Saturday10/18/2021 at approximately 1:30 p.m. After surgery he will be returned to his room. This has all been discussed with the patient and all of his questions were answered. The patient will be kept n.p.o. after midnight tonight and a consent form has been requested for incision and drainage of right submandibular abscess/right neck mass under general anesthesia. I have discussed the risks, benefits and alternative therapies for the above- mentioned procedure and for both sedation/analgesia as well as necessary blood product administration, if indicated, as they pertain to this patient. The patient has indicated his or her understanding and acceptance of the risks and procedures discussed. MMJULIOL / IJN: [id number] / MELQUIADES
[2021-10-17] MEDS ORDERED: Buprenorphine Hcl/Naloxone Hcl [Suboxone 8 Mg-2 Mg Sl Film] 1 EACH Fil SUBLINGUAL SCH (21:00)
[2021-10-17 21:12] LABS: Glucose,Whole Blood 132 mg/dL (75-99)
[2021-10-18] MEDS: TEMAZEPAM 15 MG CAP PO PRN (00:11)
[2021-10-18] MEDS: KETOROLAC 15 MG/ML 1 ML VIAL IVP SCH ×3 (00:11→11:32)
[2021-10-18] MEDS: AMPICILLIN-SULBACTAM 3 GM in SODIUM CHLORIDE 0.9% 100 ML IVPB SCH ×5 (00:13→23:23)
[2021-10-18] MEDS: Buprenorphine Hcl/Naloxone Hcl [Suboxone 8 Mg-2 Mg Sl Film] 1 EACH Fil SUBLINGUAL SCH ×5 (00:13→19:48)
[2021-10-18] MEDS: DEXAMETHASONE SOD PHOSPHATE 4 MG/ML 1 ML VIAL IVP SCH ×2 (00:34→09:19)
[2021-10-18] MEDS: LACTATED RINGERS 1,000 ML IV SCH ×7 (04:25→22:27)
[2021-10-18 07:23] LABS: Glucose,Whole Blood 102 mg/dL (75-99)
[2021-10-18] MEDS ORDERED: ONDANSETRON 4 MG/2 ML VIAL IVP ONE (07:32)
[2021-10-18] MEDS ORDERED: LIDOCAINE 1% (10MG/ML) FOR IV START INTRADERMA PRN (07:32)
[2021-10-18] MEDS: INSULIN ASPART (NovoLOG) 100 UNIT/ML VIAL SQ SCH ×4 (07:35→20:51)
[2021-10-18] MEDS: ASPIRIN 81 MG PO SCH (09:06)
[2021-10-18] MEDS: FENOFIBRATE 160 MG TAB PO SCH (09:06)
[2021-10-18] MEDS: MULTIVITAMINS, THERA 1 EACH TAB PO SCH (09:06)
[2021-10-18] MEDS: GABAPENTIN 400 MG CAP PO SCH ×3 (09:06→21:20)
[2021-10-18] MEDS: LINAGLIPTIN 5 MG TABLET PO SCH (09:06)
[2021-10-18] MEDS: FAMOTIDINE 20 MG TAB PO SCH ×2 (09:06→21:20)
[2021-10-18] MEDS: METOPROLOL SUCCINATE (ER) 100 MG TAB.ER.24H PO SCH ×2 (09:17→20:48)
[2021-10-18] MEDS: HEPARIN SODIUM,PORCINE/PF 5,000 UNIT/0.5 ML SYRINGE SQ SCH ×2 (09:28→20:52)
[2021-10-18] MEDS: FUROSEMIDE 40 MG TAB PO SCH (09:28)
[2021-10-18] MEDS: POTASSIUM CHLORIDE ER 20 MEQ TAB.ER PO SCH (09:29)
[2021-10-18 11:19] LABS: Glucose,Whole Blood 89 mg/dL (75-99)
[2021-10-18 11:26] LABS: Basophils % (A) 0 %; Eosinophils % (A) 0 %; HCT 48.7 % (39.0-53.0); HGB 16.1 gm/dL (13.0-17.5); Lymphocytes # (A) 1.9 k/uL (1.0-4.8); Lymphocytes % (A) 13 %; MCH 28.3 pg (25.0-35.0); MCHC 33.1 g/dL (31.0-37.0); MCV 85.5 fL (80.0-100.0); Mean Platelet Volume 7.3; Monocytes # (A) 0.8 k/uL (0-1.0); Monocytes % (A) 5 %; Neutrophils # (A) 11.5 k/uL (1.3-7.7); Neutrophils % (A) 80 %; Platelet Count 280 k/uL (150-450); WBC 14.5 k/uL (3.8-10.6)
[2021-10-18 11:36] LABS: Prothrombin Time 10.9 sec (9.0-12.0)
[2021-10-18 11:38] LABS: African American GFR (CKD) >90 (>60 ml/min/1.73 sqM); Anion Gap 4 mmol/L; Blood Urea Nitrogen 20 mg/dL (9-20); Carbon Dioxide 35 mmol/L (22-30); Chloride 99 mmol/L (98-107); Glucose 83 mg/dL (74-99); Non-African American GFR(CKD) >90 (>60 ml/min/1.73 sqM); Sodium 138 mmol/L (137-145)
[2021-10-18] MEDS ORDERED: PHENYLEPHRINE-0.9% NACL SYG 1,000 MCG/10 ML SYRINGE ONE (14:40)
[2021-10-18] MEDS ORDERED: SUCCINYLCHOLINE CHLORIDE 100 MG/5 ML SYR IV ONE (14:40)
[2021-10-18] MEDS ORDERED: PROPOFOL 10 MG/ML 20 ML VIAL IV ONE (14:40)
[2021-10-18] MEDS ORDERED: MIDAZOLAM 2 MG/2 ML VIAL ONE (14:40)
[2021-10-18] MEDS ORDERED: DEXTROSE 50% SYRINGE 50 ML IVP ONE (14:40)
[2021-10-18] MEDS ORDERED: LIDOCAINE 2% INJ 20 MG/ML (2 ML VIAL) ONE (14:40)
[2021-10-18] MEDS ORDERED: fentaNYL (PF) 50 MCG/ML 2 ML AMP ONE (14:40)
--- NOTE | 2021-10-18 14:50 | P.PN ---
Subjective Progress Note Date: 10/18/21 This is a 56-year-old male who was recently admitted with swelling of the right side of the face over the last 11 days and not improving with failure of outpatient and was admitted for further evaluation. Patient being closely monitored and also evaluated by Dr. Mark ENT with the possibility of a sergio ivary calculus causing the swelling and subsequent infection. Patient is maintained on IV antibiotics along with IV steroids and will continue. Patient continues with right facial swelling although feels has significantly improved. Patient denies difficulty in breathing or swallowing and denies any shortness of breath. Patient is afebrile. Patient denies any chest pain. 10/17/2021 Patient is seen and evaluated in follow-up this morning continues with right neck swelling and is being closely monitored by ENT Dr. Mark. Repeat CT of the neck and chest is ordered and currently pending. Patient continues on IV Unasyn along with high-dose IV steroids and will continue. Patient denies any difficulty in swallowing or breathing and is able to eat with no difficulties. Patient reports to some thin drainage noted from the right side in his mouth although nothing significant. Patient continues to request to go home. WBC continues to be elevated at 18.76 with a possible component of steroid-induced elevation as well. Blood sugars are being monitored and have been within normal limits. Patient is afebrile denies any chest pain or shortness of breath. 10/18/2021 Patient is seen and evaluated this morning continued with the neck swelling on the right and being closely monitored and followed by ENT Dr. Mark. Patient is tentatively scheduled for surgery with Dr. Mark today this afternoon for sialolithiasis and is currently nothing by mouth. Patient is continued on IV antibiotics in the form of Unasyn along with high-dose steroids and will await surgical report. Tentatively scheduled for 1:30 today. Patient continues to be anxious about going home although is agreeable that this is necessary. Patient is afebrile and denies any chest pain or shortness of breath. WBC trending down at 14.5 today. Blood sugars have been well controlled and will continue to monitor and CBC is 16.1 hemoglobin and BMP within normal limits. Patient currently nothing by mouth for the procedure. Will resume diet per ENT recommendations. Review of systems: Constitutional: No reports of fatigue, fever, or chills, reports right facial swelling improved Cardiovascular: No reports of chest pain or palpitations Respiratory: No reports of shortness of breath or cough GI: No reports of nausea, no reports of of vomiting : No reports of dysuria or retention Neurovascular: No reports of generalized weakness All medications have been reviewed Active Medications Acetaminophen (Acetaminophen Tab 325 Mg Tab) 650 mg PO Q6HR PRN PRN Reason: Mild Pain or Fever > 100.5 Al Hydroxide/Mg Hydroxide (Mag Hydrox/Al Hydrox/Simeth 30 Ml Cup) 15 ml PO Q6HR PRN PRN Reason: Indigestion Albuterol Sulfate (Albuterol Nebulized 2.5 Mg/3 Ml) 2.5 mg INHALATION RT-Q6H PRN PRN Reason: Shortness Of Breath Aspirin (Aspirin 81 Mg) 81 mg PO DAILY [facility] Last Admin: 10/18/21 09:06 Dose: 81 mg Documented by: Famotidine (Famotidine 20 Mg Tab) 20 mg PO BID [facility] Last Admin: 10/18/21 09:06 Dose: 20 mg Documented by: Fenofibrate (Fenofibrate 160 Mg Tab) 160 mg PO DAILY [facility] Last Admin: 10/18/21 09:06 Dose: 160 mg Documented by: Furosemide (Furosemide 40 Mg Tab) 40 mg PO DAILY [facility] Last Admin: 10/18/21 09:28 Dose: Not Given Documented by: Gabapentin (Gabapentin 400 Mg Cap) 800 mg PO TID [facility] Last Admin: 10/18/21 09:06 Dose: 800 mg Documented by: Heparin Sodium (Porcine) (Heparin Sodium,Porcine/Pf 5,000 Unit/0.5 Ml Syringe) 5,000 unit SQ Q12HR [facility] Last Admin: 10/18/21 09:28 Dose: Not Given Documented by: Hydromorphone HCl (Hydromorphone 0.5 Mg/0.5 Ml Syringe) 0.5 mg IVP Q3HR PRN PRN Reason: Moderate Pain Last Admin: 10/16/21 14:16 Dose: 0.5 mg Documented by: Hydromorphone HCl (Hydromorphone 1 Mg/Ml 1 Ml Syringe) 1 mg IVP Q3HR PRN PRN Reason: Severe Pain Last Admin: 10/17/21 17:01 Dose: 1 mg Documented by: Hydromorphone HCl (Hydromorphone 0.5 Mg/0.5 Ml Syringe) 0.5 mg IVP Q5M PRN PRN Reason: Phase 1 or 2 - Pain Control Stop: 10/18/21 20:00 Ampicillin Sodium/Sulbactam (Sodium 3 gm/ Sodium Chloride) 100 mls @ 200 mls/hr IVPB Q6H [facility]; Protocol Last Admin: 10/18/21 11:32 Dose: 200 mls/hr Documented by: Lactated Ringer's (Lactated Ringers) 1,000 mls @ 150 mls/hr IV .Q6H40M [facility] Last Admin: 10/18/21 11:21 Dose: Not Given Documented by: Lactated Ringer's (Lactated Ringers) 1,000 mls @ 20 mls/hr IV .Q24H [facility] Last Admin: 10/18/21 12:45 Dose: 0 mls Documented by: Insulin Aspart (Insulin Aspart (Novolog) 100 Unit/Ml Vial) 0 unit SQ ACHS [facility]; Protocol Last Admin: 10/18/21 11:20 Dose: Not Given Documented by: Ketorolac Tromethamine (Ketorolac 15 Mg/Ml 1 Ml Vial) 15 mg IVP Q6HR [facility] Stop: 10/18/21 16:25 Last Admin: 10/18/21 11:32 Dose: 15 mg Documented by: Lidocaine HCl (Lidocaine 1% (10mg/Ml) For Iv Start) 0.1 ml INTRADERMA PER PROTOCOL PRN PRN Reason: IV Start Linagliptin (Linagliptin 5 Mg Tablet) 5 mg PO DAILY [facility] Last Admin: 10/18/21 09:06 Dose: 5 mg Documented by: Metoprolol Succinate (Metoprolol Succinate (Er) 100 Mg Tab.Er.24h) 100 mg PO BID [facility] Last Admin: 10/18/21 09:17 Dose: Not Given Documented by: Multivitamins (Multivitamins, Thera 1 Each Tab) 1 each PO DAILY [facility] Last Admin: 10/18/21 09:06 Dose: 1 each Documented by: Naloxone HCl (Naloxone 0.4 Mg/Ml 1 Ml Vial) 0.2 mg IV Q2M PRN PRN Reason: Opioid Reversal Buprenorphine Hcl/Naloxone Hcl [ Suboxone 8 Mg-2 Mg Sl Film] 1 Each Rodrigo 0.25 film SUBLINGUAL 5XD [facility] Last Admin: 10/18/21 11:32 Dose: 0.25 film Documented by: Potassium Chloride (Potassium Chloride Er 20 Meq Tab.Er) 20 meq PO DAILY [facility] Last Admin: 10/18/21 09:29 Dose: Not Given Documented by: Promethazine HCl (Promethazine 25 Mg Tab) 25 mg PO Q6HR PRN PRN Reason: ALLERGIES/MOTION SICKNESS Temazepam (Temazepam 15 Mg Cap) 15 mg PO HS PRN PRN Reason: Insomnia Last Admin: 10/18/21 00:11 Dose: 15 mg Documented by: PHYSICAL EXAMINATION: GENERAL: The patient is alert and oriented x4, Well developed, well nourished. HEENT: Pupils are round and equally reacting to light. EOMI. no scleral icterus. No conjunctival pallor. Normocephalic, atraumatic. No pharyngeal erythema. No thyromegaly. Significant right neck bulging and swelling noted, facial swelling significantly improved CARDIOVASCULAR: S1 and S2 muffled PULMONARY: diminished breath sounds bilaterally with no wheezing or rhonchi noted. ABDOMEN: soft. Nontender on exam. obese. non-distended, normoactive bowel sounds. No palpable organomegaly. MUSCULOSKELETAL: No joint swelling or deformity. EXTREMITIES: No cyanosis, clubbing, or pedal edema. NEUROLOGICAL: Gross neurological examination did not reveal any focal deficits. SKIN: No rashes. Assessment: Acute right parotid enlargement with acute parotitis secondary to right submandibular gland sialolithiasis and possible abscess due to obstruction Leukocytosis, secondary to above Diabetes mellitus type 2 Hypertension Hyperlipidemia History of chronic liver disease GI prophylaxis DVT prophylaxis Full code Plan: Recommend to continue with current medications and management of antibiotics and steroids with ENT following closely. Recommend Accu-Cheks before meals and at bedtime as patient is on high-dose steroids and does have history of diabetes mellitus. Patient is continued on IV Unasyn and will continue.. Will continue on IV antibiotics and closely monitor for improvement in swelling. Patient is scheduled for surgery of the abscess on the right with possible stone obstru ction with ENT and will await surgical report. Patient is currently nothing by mouth and will continue to monitor blood sugars and resume diet once ENT approves. Patient continues with significant swelling of the right neck and facial swelling has significantly improved. CT of the neck and chest showed findings consistent with right submandibular gland sialolithiasis and possible abscess due to obstruction. Patient will be continued on IV antibiotics and will await surgical report. Recommend repeat labs in the morning. Prognosis is guarded. The impression and plan of care has been dictated by Luann Yanez, nurse practitioner as directed. MD Sherri I have performed a history and examination and MDM of this patient, discussed the same with the dictator, and agree with the dictator's assessment and plan as written ,documented as a scribe. Based on total visit time, I have performed more than 50% of the visit. Any additional findings or plans will be noted. Objective - Vital Signs Vital signs: Vital Signs Temp 98 F 10/18/21 04:30 Pulse 60 10/18/21 04:30 Resp 20 10/18/21 04:30 BP 172/85 10/18/21 04:30 Pulse Ox 93 L 10/18/21 04:30 Intake & Output 10/17/21 10/18/21 10/18/21 18:59 06:59 18:59 Intake Total 1900 0 Balance 1900 0 Intake: Intake, IV Titration 1900 Amount Ampicillin-Sulbactam 3 gm 100 In Sodium Chloride 0.9% 100 ml @ 200 mls/hr IVPB Q6H [facility] Rx#:[id number] Lactated Ringers 1,000 ml 1800 @ 150 mls/hr IV .Q6H40M [facility] Rx#:[id number] Oral 0 Other: Voiding Method Toilet Toilet Toilet # Voids 2 - Labs CBC & Chem 7: 10/18/21 10:52 10/18/21 10:52 Labs: Abnormal Lab Results - Last 24 Hours (Table) 10/17/21 10/17/21 10/17/21 Range/Units 05:48 05:48 11:55 WBC 18.76 H (4.50-10.00) X 10*3/uL Immature Gran # 0.10 H (0.00-0.04) X 10*3/uL Neutrophils # 16.25 H (1.80-7.70) X 10*3/uL Eosinophils # 0 L (0.04-0.35) X 10*3/uL BUN/Creatinine Ratio 30.71 H (12.00-20.00) Ratio Glucose 124 H (70-110) mg/dL POC Glucose (mg/dL) 127 H (75-99) mg/dL 10/17/21 10/17/21 10/18/21 Range/Units 16:52 20:53 07:15 WBC (4.50-10.00) X 10*3/uL Immature Gran # (0.00-0.04) X 10*3/uL Neutrophils # (1.80-7.70) X 10*3/uL Eosinophils # (0.04-0.35) X 10*3/uL BUN/Creatinine Ratio (12.00-20.00) Ratio Glucose (70-110) mg/dL POC Glucose (mg/dL) 183 H 132 H 102 H (75-99) mg/dL Microbiology - Last 24 Hours (Table) 10/15/21 17:19 Blood Culture - Preliminary Blood No Growth after 48 hours
[2021-10-18] MEDS ORDERED: CLINDAMYCIN 150 MG/ML 4 ML VIAL IVPB ONE (14:56)
[2021-10-18] MEDS: HYDROmorphone 0.5 MG/0.5 ML SYRINGE IVP PRN ×3 (16:52→17:07)
[2021-10-18] MEDS: HYDROmorphone 1 MG/ML 1 ML SYRINGE IVP PRN ×2 (19:48→23:23)
[2021-10-18 21:01] LABS: Glucose,Whole Blood 175 mg/dL (75-99)
--- NOTE | 2021-10-18 23:36 | OP ---
OPERATIVE REPORT PREOPERATIVE DIAGNOSIS: Right submandibular abscess. Right submandibular sialadenitis/sialolithiasis POSTOPERATIVE DIAGNOSIS: Right submandibular abscess. Right submandibular sialadenitis/sialolithiasis ANESTHESIA: General. OPERATIVE PROCEDURE: Exploration of right neck and incision and drainage of right mandibular abscess. OPERATING SURGEON: Dr. Mark. COMPLICATIONS: None. ESTIMATED BLOOD LOSS: Less than 100 mL. OPERATIVE PROCEDURE DESCRIPTION: The patient was placed on the operating table in supine position. After uneventful induction and endotracheal intubation, satisfactory general anesthesia was obtained. Next the patient's right miya face/neck was prepped and draped in the usual and customary fashion. The abscess was palpated, and using a [employer] marking pen, the proposed incision was outlined approximately 3 fingerbreadths below the inferior border of the right mandible in one of the patient's natural skin creases in the neck.In this fashion, injury to the the mandibular branch of the facial nerve is avoided. This incision was purposely located at the most dependent portion of the dependent portion of the abscess. Next, using a 10 mL syringe with an 18-gauge needle, this was used to locate the main cavity of the abscess. The syringe and needle were inserted through the patient's skin, and as it was advanced with negative suction, purulent material was suctioned from the central portion of the abscess. The syringe was removed from the needle, but the needle was left in the skin to use as a guide towards the abscess. Next, using a #15 scalpel blade, an incision was made through skin and down through the subcutaneous tissue in the usual fashion and the exploration of the neck was started. A superior flap was created in the usual fashion after incising the platysma muscle. The anterior border of the right sternomastoid muscle was identified. Next, using a mosquito hemostat and sharp dissection, the fascia overlying the right sternomastoid muscle was carefully incised. A tunnel was carefully created using a curved Humera clamp by directing it superiorly towards the main body of the abscess. Once the abscess was encountered and the abscess cavity was entered, purulent material immediately flowed from the abscess. Culture and sensitivities for aerobes and anaerobes were taken. Next the superior flap was further developed. The incision into the cavity was widened using sharp and blunt finger dissection. The central cavity of the abscess was then explored in its entirety using a finger to break up any septae that may have formed. This abscess cavity on the CT scan appeared to be loculated. A tremendous amount of purulent material was suctioned from the central portion of the abscess cavity. The cavity itself was then irrigated, first with warm normal saline until it flowed clear. Following this, a solution of 900 mg of Cleocin mixed with normal saline was irrigated into the abscess cavity also. Once all purulent material had been removed from the cavity, a Isacc-Montelongo drain was fashioned in such a manner as to work as an appropriate drain. A traditional Karen drain was not available. The drain was then sutured to the skin to secure it in the usual fashion. The wound defect was closed in multiple layers as a complex closure beginning with deep closure of the fascial layer using 4-0 Vicryl in an interrupted fashion. Next the subcutaneous tissues were approximated using 4-0 Vicryl in interrupted buried fashion. Following this, the skin was carefully approximated using 4-0 Vicryl in an interrupted buried fashion. Care was taken not to snag the Isacc- Montelongo drain. The final approximation of the skin edges was obtained by using surgical julian. At this point the procedure was terminated. There were no intraoperative complications. More than 75 mL of purulent material was evacuated from the right neck abscess cavity. A traditional neck dressing was applied in the usual fashion. The patient tolerated the procedure well and was returned to the recovery room in satisfactory condition.Approximate extended operating time was 93 minutes due the extensive inflammatory response affecting the surrounding soft tissues and making the dissection slow. TERENCE / DINESH: [id number] / MELQUIADES
[2021-10-19] MEDS: CLINDAMYCIN 600 MG in DEXTROSE 5% IN WATER 50 ML IVPB SCH ×6 (00:15→16:59)
[2021-10-19] MEDS: Buprenorphine Hcl/Naloxone Hcl [Suboxone 8 Mg-2 Mg Sl Film] 1 EACH Fil SUBLINGUAL SCH ×5 (00:16→20:27)
[2021-10-19] MEDS: HYDROmorphone 1 MG/ML 1 ML SYRINGE IVP PRN ×5 (04:25→20:28)
[2021-10-19] MEDS: LACTATED RINGERS 1,000 ML IV SCH ×2 (05:42→17:00)
[2021-10-19] MEDS: AMPICILLIN-SULBACTAM 3 GM in SODIUM CHLORIDE 0.9% 100 ML IVPB SCH ×4 (05:42→23:13)
[2021-10-19 07:35] LABS: Glucose,Whole Blood 79 mg/dL (75-99)
[2021-10-19] MEDS: INSULIN ASPART (NovoLOG) 100 UNIT/ML VIAL SQ SCH ×4 (07:38→20:26)
[2021-10-19] MEDS: HEPARIN SODIUM,PORCINE/PF 5,000 UNIT/0.5 ML SYRINGE SQ SCH ×3 (07:39→20:26)
[2021-10-19] MEDS: GABAPENTIN 400 MG CAP PO SCH ×3 (07:39→21:21)
[2021-10-19] MEDS: METOPROLOL SUCCINATE (ER) 100 MG TAB.ER.24H PO SCH ×2 (07:40→20:27)
[2021-10-19] MEDS: LINAGLIPTIN 5 MG TABLET PO SCH (07:40)
[2021-10-19] MEDS: ASPIRIN 81 MG PO SCH (07:40)
[2021-10-19] MEDS: POTASSIUM CHLORIDE ER 20 MEQ TAB.ER PO SCH (07:40)
[2021-10-19] MEDS: FUROSEMIDE 40 MG TAB PO SCH (07:41)
[2021-10-19] MEDS: FENOFIBRATE 160 MG TAB PO SCH (07:41)
[2021-10-19] MEDS: MULTIVITAMINS, THERA 1 EACH TAB PO SCH (07:41)
[2021-10-19] MEDS: FAMOTIDINE 20 MG TAB PO SCH ×2 (07:41→20:27)
[2021-10-19 10:55] LABS: Basophils # (A) 0.01 X 10*3/uL (0.00-0.10); Basophils % (A) 0.1 %; Eosinophils # (A) 0.05 X 10*3/uL (0.04-0.35); Eosinophils % (A) 0.4 %; HCT 44.6 % (39.6-50.0); HGB 14.6 g/dL (13.0-17.0); Immature Grans, Automated 0.5 %; Lymphocytes % (A) 36.8 %; MCH 27.2 pg (27.0-32.0); MCHC 32.7 g/dL (32.0-37.0); MCV 83.1 fL (80.0-97.0); Mean Platelet Volume 9.7 fL (9.5-12.2); Monocytes # (A) 1.25 X 10*3/uL (0.20-1.00); Monocytes % (A) 10.2 %; NRBC Per 100 WBC 0 /100 WBCS (0.0-0.0); Neutrophils # (A) 6.37 X 10*3/uL (1.80-7.70); Platelet Count 269 X 10*3/uL (140-440); RBC 5.37 X 10*6/uL (4.40-5.60); RDW 13.1 % (11.5-14.5); WBC 12.24 X 10*3/uL (4.50-10.00)
[2021-10-19 11:09] LABS: Glucose,Whole Blood 82 mg/dL (75-99)
[2021-10-19 11:09] LABS: African American GFR (CKD) 114.1 (60.0-200.0); Anion Gap 8.5 mmol/L (10.00-18.00); BUN/Creat Ratio 23.5 Ratio (12.00-20.00); Blood Urea Nitrogen 18.8 mg/dL (9.0-27.0); Calcium 8.8 mg/dL (8.7-10.3); Carbon Dioxide 32.5 mmol/L (20.0-27.5); Non-African American GFR(CKD) 98.5 (60.0-200.0); Potassium 3.6 mmol/L (3.5-5.5)
--- NOTE | 2021-10-19 12:29 | P.PN ---
Subjective Progress Note Date: 10/19/21 This is a 56-year-old male who was recently admitted with swelling of the right side of the face over the last 11 days and not improving with failure of outpatient and was admitted for further evaluation. Patient being closely monitored and also evaluated by Dr. Mark ENT with the possibility of a sergio ivary calculus causing the swelling and subsequent infection. Patient is maintained on IV antibiotics along with IV steroids and will continue. Patient continues with right facial swelling although feels has significantly improved. Patient denies difficulty in breathing or swallowing and denies any shortness of breath. Patient is afebrile. Patient denies any chest pain. 10/17/2021 Patient is seen and evaluated in follow-up this morning continues with right neck swelling and is being closely monitored by ENT Dr. Mark. Repeat CT of the neck and chest is ordered and currently pending. Patient continues on IV Unasyn along with high-dose IV steroids and will continue. Patient denies any difficulty in swallowing or breathing and is able to eat with no difficulties. Patient reports to some thin drainage noted from the right side in his mouth although nothing significant. Patient continues to request to go home. WBC continues to be elevated at 18.76 with a possible component of steroid-induced elevation as well. Blood sugars are being monitored and have been within normal limits. Patient is afebrile denies any chest pain or shortness of breath. 10/18/2021 Patient is seen and evaluated this morning continued with the neck swelling on the right and being closely monitored and followed by ENT Dr. Mark. Patient is tentatively scheduled for surgery with Dr. Mark today this afternoon for sialolithiasis and is currently nothing by mouth. Patient is continued on IV antibiotics in the form of Unasyn along with high-dose steroids and will await surgical report. Tentatively scheduled for 1:30 today. Patient continues to be anxious about going home although is agreeable that this is necessary. Patient is afebrile and denies any chest pain or shortness of breath. WBC trending down at 14.5 today. Blood sugars have been well controlled and will continue to monitor and CBC is 16.1 hemoglobin and BMP within normal limits. Patient currently nothing by mouth for the procedure. Will resume diet per ENT recommendations. 10/19/2021 Patient is seen in follow-up and is status post incision and drainage with drain placement of the right neck abscess with Dr. Mark yesterday afternoon. Patient has been resumed on diet and reported to have cultures and sensitivity from the drainage of surgery noted sent and will await finalized cultures. Patient is maintained on IV antibiotics in the form of Unasyn and clindamycin and will add infectious disease and appreciate input and recommendations on antibiotics. Patient remains afebrile and WBC trending down at 12.24, hemoglobin is stable at 14.6. BMP within normal limits. Blood sugars being monitored and will continue with Accu-Cheks before meals and at bedtime. Vital signs are stable and patient remains afebrile. Appropriate home medications have been resumed. Patient is continued on lactated Ringer's at 150 mL per hour and will decrease the dose. Patient denies any chest pain or shortness of breath. Patient resumed on diet and tolerating with no reports of nausea or vomiting noted. Patient reports the pain management being controlled at this time. Patient wants to go home. Discussed with him about the importance of waiting for cultures to determine appropriate antibiotics. Review of systems: Constitutional: No reports of fatigue, fever, or chills, reports right facial swelling improved Cardiovascular: No reports of chest pain or palpitations Respiratory: No reports of shortness of breath or cough GI: No reports of nausea, no reports of of vomiting : No reports of dysuria or retention Neurovascular: No reports of generalized weakness All medications have been reviewed Active Medications Acetaminophen (Acetaminophen Tab 325 Mg Tab) 650 mg PO Q6HR PRN PRN Reason: Mild Pain or Fever > 100.5 Al Hydroxide/Mg Hydroxide (Mag Hydrox/Al Hydrox/Simeth 30 Ml Cup) 15 ml PO Q6HR PRN PRN Reason: Indigestion Albuterol Sulfate (Albuterol Nebulized 2.5 Mg/3 Ml) 2.5 mg INHALATION RT-Q6H PRN PRN Reason: Shortness Of Breath Aspirin (Aspirin 81 Mg) 81 mg PO DAILY [facility] Last Admin: 10/19/21 07:40 Dose: 81 mg Documented by: Famotidine (Famotidine 20 Mg Tab) 20 mg PO BID [facility] Last Admin: 10/19/21 07:41 Dose: 20 mg Documented by: Fenofibrate (Fenofibrate 160 Mg Tab) 160 mg PO DAILY [facility] Last Admin: 10/19/21 07:41 Dose: 160 mg Documented by: Furosemide (Furosemide 40 Mg Tab) 40 mg PO DAILY [facility] Last Admin: 10/19/21 07:41 Dose: 40 mg Documented by: Gabapentin (Gabapentin 400 Mg Cap) 800 mg PO TID [facility] Last Admin: 10/19/21 07:39 Dose: 800 mg Documented by: Heparin Sodium (Porcine) (Heparin Sodium,Porcine/Pf 5,000 Unit/0.5 Ml Syringe) 5,000 unit SQ Q12HR [facility] Last Admin: 10/19/21 07:45 Dose: Not Given Documented by: Hydromorphone HCl (Hydromorphone 0.5 Mg/0.5 Ml Syringe) 0.5 mg IVP Q3HR PRN PRN Reason: Moderate Pain Last Admin: 10/16/21 14:16 Dose: 0.5 mg Documented by: Hydromorphone HCl (Hydromorphone 1 Mg/Ml 1 Ml Syringe) 1 mg IVP Q3HR PRN PRN Reason: Severe Pain Last Admin: 10/19/21 09:17 Dose: 1 mg Documented by: Ampicillin Sodium/Sulbactam (Sodium 3 gm/ Sodium Chloride) 100 mls @ 200 mls/hr IVPB Q6H [facility]; Protocol Last Admin: 10/19/21 12:12 Dose: 200 mls/hr Documented by: Lactated Ringer's (Lactated Ringers) 1,000 mls @ 150 mls/hr IV .Q6H40M [facility] Last Admin: 10/19/21 05:42 Dose: 150 mls/hr Documented by: Lactated Ringer's (Lactated Ringers) 1,000 mls @ 20 mls/hr IV .Q24H [facility] Last Admin: 10/18/21 14:45 Dose: 500 mls Documented by: Clindamycin Phosphate 600 mg/ (Dextrose/Water) 54 mls @ 50 mls/hr IVPB Q8HR [facility]; Protocol Last Admin: 10/19/21 07:39 Dose: 50 mls/hr Documented by: Insulin Aspart (Insulin Aspart (Novolog) 100 Unit/Ml Vial) 0 unit SQ ACHS [facility]; Protocol Last Admin: 10/19/21 12:11 Dose: Not Given Documented by: Lidocaine HCl (Lidocaine 1% (10mg/Ml) For Iv Start) 0.1 ml INTRADERMA PER PROTOCOL PRN PRN Reason: IV Start Linagliptin (Linagliptin 5 Mg Tablet) 5 mg PO DAILY [facility] Last Admin: 10/19/21 07:40 Dose: 5 mg Documented by: Metoprolol Succinate (Metoprolol Succinate (Er) 100 Mg Tab.Er.24h) 100 mg PO BID [facility] Last Admin: 10/19/21 07:40 Dose: 100 mg Documented by: Multivitamins (Multivitamins, Thera 1 Each Tab) 1 each PO DAILY [facility] Last Admin: 10/19/21 07:41 Dose: 1 each Documented by: Naloxone HCl (Naloxone 0.4 Mg/Ml 1 Ml Vial) 0.2 mg IV Q2M PRN PRN Reason: Opioid Reversal Buprenorphine Hcl/Naloxone Hcl [ Suboxone 8 Mg-2 Mg Sl Film] 1 Each Rodrigo 0.25 film SUBLINGUAL 5XD [facility] Last Admin: 10/19/21 12:10 Dose: 0.25 film Documented by: Potassium Chloride (Potassium Chloride Er 20 Meq Tab.Er) 20 meq PO DAILY [facility] Last Admin: 10/19/21 07:40 Dose: 20 meq Documented by: Promethazine HCl (Promethazine 25 Mg Tab) 25 mg PO Q6HR PRN PRN Reason: ALLERGIES/MOTION SICKNESS Temazepam (Temazepam 15 Mg Cap) 15 mg PO HS PRN PRN Reason: Insomnia Last Admin: 10/18/21 00:11 Dose: 15 mg Documented by: PHYSICAL EXAMINATION: GENERAL: The patient is alert and oriented x4, Well developed, well nourished. HEENT: Pupils are round and equally reacting to light. EOMI. no scleral icterus. No conjunctival pallor. Normocephalic, atraumatic. No pharyngeal erythema. No thyromegaly. Significant right neck bulging and swelling noted, facial swelling significantly improved surgical dressings of the neck are dry with drain noted CARDIOVASCULAR: S1 and S2 muffled PULMONARY: diminished breath sounds bilaterally with no wheezing or rhonchi noted. ABDOMEN: soft. Nontender on exam. obese. non-distended, normoactive bowel sounds. No palpable organomegaly. MUSCULOSKELETAL: No joint swelling or deformity. EXTREMITIES: No cyanosis, clubbing, or pedal edema. NEUROLOGICAL: Gross neurological examination did not reveal any focal deficits. SKIN: No rashes. Assessment: Acute right parotid enlargement with acute parotitis secondary to right submandibular gland sialolithiasis and possible abscess due to obstruction, status post incision and drainage postop day #1 Leukocytosis, secondary to above, trending down Diabetes mellitus type 2 Hypertension Hyperlipidemia History of chronic liver disease GI prophylaxis DVT prophylaxis Full code Plan: Recommend to continue with current medications and management of antibiotics with ENT following closely. Recommend Accu-Cheks before meals and at bedtime as patient does have history of diabetes mellitus. Patient is continued on IV Unasyn along with clindamycin and will continue.. Recommend infectious disease consultation and consult has been placed and appreciate input and recommendations. Cultures were obtained during surgery and awaiting finalized cultures to determine discharge antibiotics. Report of the surgery reports to copious amounts of purulent drainage noted. Please refer to ENT operative note for further documentation. Patient has been resumed on diet and denies any nausea or vomiting or difficulty in swallowing and tolerating. Patient con tinues to request to be able to go home today. WBC trending down and patient remains afebrile. Recommend repeat labs in the morning. Prognosis is guarded. The impression and plan of care has been dictated by Luann Yanez, nurse practitioner as directed. MD Sherri I have performed a history and examination and MDM of this patient, discussed the same with the dictator, and agree with the dictator's assessment and plan as written ,documented as a scribe. Based on total visit time, I have performed more than 50% of the visit. Any additional findings or plans will be noted. Objective - Vital Signs Vital signs: Vital Signs Temp 98.1 F 10/19/21 04:10 Pulse 54 L 10/19/21 05:48 Resp 20 10/19/21 04:10 BP 136/75 10/19/21 04:10 Pulse Ox 95 10/19/21 05:48 Intake & Output 10/18/21 10/19/21 10/19/21 18:59 06:59 18:59 Intake Total 2000 300 Output Total 500 Balance 1500 300 Intake: IV 500 Intake, IV Titration 1500 Amount Lactated Ringers 1,000 ml 1500 @ 150 mls/hr IV .Q6H40M [facility] Rx#:[id number] Oral 300 Output: Urine 400 Estimated Blood Loss 100 Other: Voiding Method Toilet Toilet # Voids 1 2 - Labs CBC & Chem 7: 10/19/21 07:17 10/19/21 07:17 Labs: Abnormal Lab Results - Last 24 Hours (Table) 10/18/21 10/18/21 10/18/21 Range/Units 10:52 10:52 20:50 WBC 14.5 H (3.8-10.6) k/uL Neutrophils # 11.5 H (1.3-7.7) k/uL Carbon Dioxide 35 H (22-30) mmol/L POC Glucose (mg/dL) 175 H (75-99) mg/dL Microbiology - Last 24 Hours (Table) 10/15/21 17:19 Blood Culture - Preliminary Blood No Growth after 72 hours
[2021-10-19 17:14] LABS: Glucose,Whole Blood 127 mg/dL (75-99)
[2021-10-19 20:23] LABS: Glucose,Whole Blood 107 mg/dL (75-99)
[2021-10-20] MEDS: CLINDAMYCIN 600 MG in DEXTROSE 5% IN WATER 50 ML IVPB SCH ×6 (00:05→15:26)
[2021-10-20] MEDS: Buprenorphine Hcl/Naloxone Hcl [Suboxone 8 Mg-2 Mg Sl Film] 1 EACH Fil SUBLINGUAL SCH ×3 (00:05→13:47)
[2021-10-20] MEDS: HYDROmorphone 0.5 MG/0.5 ML SYRINGE IVP PRN ×3 (00:17→14:23)
--- NOTE | 2021-10-20 02:38 | PN ---
PROGRESS NOTE DATE OF SERVICE: 10/19/2021 SUBJECTIVE: Vital signs stable. The patient is afebrile. The patient states that he feels significantly better. He is able to eat and he has an appetite. He states he is having only mild pain in the area of the right submandibular abscess. His dressing was changed this morning by his nurse. His nurse commented that there was only a moderate amount of serosanguineous drainage present. The patient has a Isacc-Montelongo drain tube in the wound site. It is secured to the skin. OBJECTIVE: HEENT: Patient is normocephalic. Tympanic membranes are normal. Examination of the surgical site reveals that the surgical julian are intact. The Isacc-Montelongo drain is intact. There is only a minimal amount of drainage on the dressing since the nurse changed the dressing early this morning. It is now mid afternoon. The remainder of the head and neck exam, chest and cardiovascular exam is unchanged since last visit. ASSESSMENT: Status post exploration of the right neck and incision and drainage of a deep right submandibular abscess. PLAN: Were we will continue with the current antibiotic combination of Unasyn and Cleocin. I will see the patient tomorrow and based upon the findings at the surgical site, I will either pull the drain from the patient tomorrow or at the latest Saturday. If I pull the drain tomorrow late afternoon, then the patient will be able to be discharged home. Whenever he is discharged, he will be discharged on Cleocin 300 mg t.i.d. for 10 days. I will then see him in my office a week after his discharge. Again, I may discharge the patient tomorrow or Saturday. Please do not discharge the patient before I give the okay. MADDIEL / JELANIN: [id number] / MELQUIADES
[2021-10-20] MEDS: AMPICILLIN-SULBACTAM 3 GM in SODIUM CHLORIDE 0.9% 100 ML IVPB SCH ×2 (05:44→13:33)
[2021-10-20 06:53] LABS: African American GFR (CKD) >90 (>60 ml/min/1.73 sqM); Anion Gap 3 mmol/L; Blood Urea Nitrogen 20 mg/dL (9-20); Calcium 8.5 mg/dL (8.4-10.2); Carbon Dioxide 34 mmol/L (22-30); Chloride 101 mmol/L (98-107); Glucose 100 mg/dL (74-99); Non-African American GFR(CKD) >90 (>60 ml/min/1.73 sqM); Potassium 4.1 mmol/L (3.5-5.1); Sodium 138 mmol/L (137-145)
[2021-10-20 07:13] LABS: Glucose,Whole Blood 76 mg/dL (75-99)
[2021-10-20] MEDS: INSULIN ASPART (NovoLOG) 100 UNIT/ML VIAL SQ SCH ×2 (07:14→12:15)
[2021-10-20 07:21] LABS: Basophils % (A) 0 %; Eosinophils # (A) 0.2 k/uL (0-0.7); Eosinophils % (A) 2 %; HCT 48.8 % (39.0-53.0); HGB 16.4 gm/dL (13.0-17.5); Lymphocytes % (A) 40 %; MCH 28.4 pg (25.0-35.0); MCHC 33.6 g/dL (31.0-37.0); MCV 84.4 fL (80.0-100.0); Mean Platelet Volume 7.1; Monocytes # (A) 0.6 k/uL (0-1.0); Monocytes % (A) 5 %; Neutrophils # (A) 6.4 k/uL (1.3-7.7); Neutrophils % (A) 51 %; Platelet Count 312 k/uL (150-450); RBC 5.78 m/uL (4.30-5.90); RDW 13.5 % (11.5-15.5); WBC 12.4 k/uL (3.8-10.6)
[2021-10-20] MEDS: FENOFIBRATE 160 MG TAB PO SCH (08:33)
[2021-10-20] MEDS: ASPIRIN 81 MG PO SCH (08:33)
[2021-10-20] MEDS: HEPARIN SODIUM,PORCINE/PF 5,000 UNIT/0.5 ML SYRINGE SQ SCH (08:33)
[2021-10-20] MEDS: FAMOTIDINE 20 MG TAB PO SCH (08:33)
[2021-10-20] MEDS: FUROSEMIDE 40 MG TAB PO SCH (08:33)
[2021-10-20] MEDS: LINAGLIPTIN 5 MG TABLET PO SCH (08:34)
[2021-10-20] MEDS: GABAPENTIN 400 MG CAP PO SCH ×2 (08:34→15:26)
[2021-10-20] MEDS: POTASSIUM CHLORIDE ER 20 MEQ TAB.ER PO SCH (08:34)
[2021-10-20] MEDS: MULTIVITAMINS, THERA 1 EACH TAB PO SCH (08:34)
[2021-10-20] MEDS: METOPROLOL SUCCINATE (ER) 100 MG TAB.ER.24H PO SCH (08:34)
[2021-10-20 11:42] LABS: Glucose,Whole Blood 87 mg/dL (75-99)
[2021-10-20 12:13] VITALS: BP 138/83; PULSE 50; RESP 20; TEMP 98.3
--- NOTE | 2021-10-20 13:34 | P.PN ---
Subjective This is a 56-year-old male who was recently admitted with swelling of the right side of the face over the last 11 days and not improving with failure of outpatient and was admitted for further evaluation. Patient being closely monitored and also evaluated by Dr. Mark ENT with the possibility of a salivary calculus causing the swelling and subsequent infection. Patient is maintained on IV antibiotics along with IV steroids and will continue. Patient continues with right facial swelling although feels has significantly improved. Patient denies difficulty in breathing or swallowing and denies any shortness of breath. Patient is afebrile. Patient denies any chest pain. 10/17/2021 Patient is seen and evaluated in follow-up this morning continues with right neck swelling and is being closely monitored by ENT Dr. Mark. Repeat CT of the neck and chest is ordered and currently pending. Patient continues on IV Unasyn along with high-dose IV steroids and will continue. Patient denies any difficulty in swallowing or breathing and is able to eat with no difficulties. Patient reports to some thin drainage noted from the right side in his mouth although nothing significant. Patient continues to request to go home. WBC con tinues to be elevated at 18.76 with a possible component of steroid-induced elevation as well. Blood sugars are being monitored and have been within normal limits. Patient is afebrile denies any chest pain or shortness of breath. 10/18/2021 Patient is seen and evaluated this morning continued with the neck swelling on the right and being closely monitored and followed by ENT Dr. Mark. Patient is tentatively scheduled for surgery with Dr. Mark today this afternoon for sialolithiasis and is currently nothing by mouth. Patient is continued on IV antibiotics in the form of Unasyn along with high-dose steroids and will await surgical report. Tentatively scheduled for 1:30 today. Patient continues to be anxious about going home although is agreeable that this is necessary. Patient is afebrile and denies any chest pain or shortness of breath. WBC trending down at 14.5 today. Blood sugars have been well controlled and will continue to monitor and CBC is 16.1 hemoglobin and BMP within normal limits. Patient currently nothing by mouth for the procedure. Will resume diet per ENT recommendations. 10/19/2021 Patient is seen in follow-up and is status post incision and drainage with drain placement of the right neck abscess with Dr. Mark yesterday afternoon. Patient has been resumed on diet and reported to have cultures and sensitivity from the drainage of surgery noted sent and will await finalized cultures. Patient is maintained on IV antibiotics in the form of Unasyn and clindamycin and will add infectious disease and appreciate input and recommendations on antibiotics. Patient remains afebrile and WBC trending down at 12.24, hemoglobin is stable at 14.6. BMP within normal limits. Blood sugars being monitored and will continue with Accu-Cheks before meals and at bedtime. Vital signs are stable and patient remains afebrile. Appropriate home medications have been resumed. Patient is continued on lactated Ringer's at 150 mL per hour and will decrease the dose. Patient denies any chest pain or shortness of breath. Patient resumed on diet and tolerating with no reports of nausea or vomiting noted. Patient reports the pain management being controlled at this time. Patient wants to go home. Discussed with him about the importance of waiting for cultures to determine appropriate antibiotics. 10/20/2021 Patient's right neck wound is healing. Drain is in place. Leukocytosis improving down to 12,000. He remains on Unasyn and clindamycin with plan for him to be discharged on 10 days of clindamycin orally. ENT team has to clear the patient prior to discharge and discontinue his wound drain. For discharge. Objective - Vital Signs Vital signs: Vital Signs Temp 98.2 F 10/20/21 05:51 Pulse 60 10/20/21 08:30 Resp 18 10/20/21 05:51 BP 135/84 10/20/21 08:30 Pulse Ox 94 L 10/20/21 05:51 Intake & Output 10/19/21 10/20/21 10/20/21 18:59 06:59 18:59 Intake Total 490 Balance 490 Intake: Intake, IV Titration 490 Amount Ampicillin-Sulbactam 3 gm 200 In Sodium Chloride 0.9% 100 ml @ 200 mls/hr IVPB Q6H [facility] Rx#:[id number] Clindamycin 600 mg In 50 Dextrose 5% in Water 50 ml @ 50 mls/hr IVPB Q8HR [facility] Rx#:[id number] Lactated Ringers 1,000 ml 240 @ 20 mls/hr IV .Q24H [facility] Rx#:[id number] Other: Voiding Method Toilet # Voids 3 2 - Exam GENERAL: The patient is alert and oriented x4, Well developed, well nourished. -HEENT: Pupils are round and equally reacting to light. EOMI. no scleral icterus. No conjunctival pallor. Normocephalic, atraumatic. No pharyngeal erythema. No thyromegaly. Surgical wound is healing. Drain is in place CARDIOVASCULAR: S1 and S2 muffled PULMONARY: diminished breath sounds bilaterally with no wheezing or rhonchi noted. ABDOMEN: soft. Nontender on exam. obese. non-distended, normoactive bowel sounds. No palpable organomegaly. MUSCULOSKELETAL: No joint swelling or deformity. EXTREMITIES: No cyanosis, clubbing, or pedal edema. NEUROLOGICAL: Gross neurological examination did not reveal any focal deficits. SKIN: No rashes - Labs CBC & Chem 7: 10/20/21 06:10 10/20/21 06:10 Labs: Abnormal Lab Results - Last 24 Hours (Table) 10/19/21 10/19/21 10/19/21 Range/Units 07:17 07:17 17:13 WBC 12.24 H (4.50-10.00) X 10*3/uL Immature Gran # 0.06 H (0.00-0.04) X 10*3/uL Lymphocytes # (1.0-4.8) k/uL Monocytes # 1.25 H (0.20-1.00) X 10*3/uL Carbon Dioxide 32.5 H (20.0-27.5) mmol/L Anion Gap 8.50 L (10.00-18.00) mmol/L BUN/Creatinine Ratio 23.50 H (12.00-20.00) Ratio Glucose 69 L (70-110) mg/dL POC Glucose (mg/dL) 127 H (75-99) mg/dL 10/19/21 10/20/21 10/20/21 Range/Units 20:21 06:10 06:10 WBC 12.4 H (4.50-10.00) X 10*3/uL Immature Gran # (0.00-0.04) X 10*3/uL Lymphocytes # 5.0 H (1.0-4.8) k/uL Monocytes # (0.20-1.00) X 10*3/uL Carbon Dioxide 34 H (20.0-27.5) mmol/L Anion Gap (10.00-18.00) mmol/L BUN/Creatinine Ratio (12.00-20.00) Ratio Glucose 100 H (70-110) mg/dL POC Glucose (mg/dL) 107 H (75-99) mg/dL Microbiology - Last 24 Hours (Table) 10/15/21 17:19 Blood Culture - Preliminary Blood No Growth after 96 hours Assessment and Plan Assessment: Acute right parotid enlargement with acute parotitis secondary to right submandibular gland sialolithiasis and possible abscess due to obstruction, status post incision and drainage postop day #2 Leukocytosis, secondary to above, trending down Diabetes mellitus type 2 Hypertension Hyperlipidemia History of chronic liver disease Plan: This is a pleasant 56 years old male with right salivary gland infection and possible calculus. Rule out mass. Follow-up with ENT. Continue with Unasyn and clindamycin ENT surgical team will discontinue the drain from the wound after the patient prior to discharge. they recommend to dc pt on 10 more days of oral clindamycin. We will discharge the patient was cleared by ENT team for so. Labs and medication were reviewed.. Continue same treatment. Continue with symptomatic treatment. Resume home medication. Monitor lytes and vitals. DVT and GI prophylaxis. Further recommendationsas per clinical course of the patient DVT prophylaxis: Subcutaneous heparin GI Prophylaxis: Pepcid
[2021-10-20] MEDS ORDERED: BACITRACIN OINT 1 EACH PACKET TOPICAL ONE (15:47)
--- NOTE | 2021-10-21 05:42 | PN ---
PROGRESS NOTE DATE OF SERVICE: 10/20/2021 SUBJECTIVE: Vital signs stable. Patient is afebrile. The patient has only had minimal drainage on his dressing since yesterday. He states that he feels great. Cultures from surgery are still pending. OBJECTIVE: HEENT: Patient is normocephalic. Tympanic membranes are normal. The neck dressing was removed without difficulty. Inspection of the dressing revealed minimal drainage on the dressing. Next, a single suture holding the Isacc Montelongo drain in place was snipped and the Isacc-Montelongo drain was removed without incident. A small blood clot was noted at the opening of the drainage hole and this was removed with a pair of forceps. No attempt was made to close this area as it would be left for natural closure/natural drainage. A light dressing was applied in the usual and customary fashion. ASSESSMENT: Status post exploration of right neck and incision and drainage of right submandibular abscess under general anesthesia. PLAN: The patient is okay to be discharged this afternoon. I will write a prescription for him for Cleocin capsules 300 mg, one p.o. t.i.d. #30 no refills. I gave the patient one of my business cards and instructed him to call my office on 10/24/2021 and at that time he will be given an appointment for later on in the week. We may remove all or some of his surgical julian. He has been advised that he can apply a light coating of bacitracin ointment to the surgical site twice daily until we see him in the office. Full ENT discharge instructions were dictated. The primary doctor on this case may also have other instructions for the patient. He does not require anything for pain and has been instructed to use Tylenol, ibuprofen, Advil, Motrin, etc. if he has any discomfort. He has my phone number to call if there are any issues between now and his office visit. MMODL / IJN: [id number] / MELQUIADES
== END 2021-10-20 17:15 | disposition home or self-care (01) | DRG 155 ==
LOC: EC 03:56 → UNDOADMIN 06:10 → 5NMEDONC 06:10 → OBSVTOIN 10-18 07:10
PROVIDERS: ADMIT Hospitalist; ATTEND Hospitalist
PROC: 0WJ Anatomical Regions, General, Inspection (ICD-10-PCS; 2021-10-18)
PROC: 0J9 Subcutaneous Tissue and Fascia, Drainage (ICD-10-PCS; principal; 2021-10-18 13:30)
DX: K11.21 Acute sialoadenitis (principal); K12.2 Cellulitis and abscess of mouth; L03.211 Cellulitis of face; K11.5 Sialolithiasis; I10 Essential (primary) hypertension; E11.9 Type 2 diabetes mellitus without complications; E78.5 Hyperlipidemia, unspecified; F17.210 Nicotine dependence, cigarettes, uncomplicated; M27.2 Inflammatory conditions of jaws; Z82.3 Family history of stroke; Z80.3 Family history of malignant neoplasm of breast; Z79.52 Long term (current) use of systemic steroids; Z83.3 Family history of diabetes mellitus; Z79.82 Long term (current) use of aspirin; Z82.49 Family history of ischemic heart disease and other diseases of the circulatory system; Z88.1 Allergy status to other antibiotic agents; Z88.5 Allergy status to narcotic agent; Z91.018 Allergy to other foods
CPT/HCPCS: 70491; 71260; 80048; 80053; 83036; 85025; 85610; 87040; 96365; 96375; 99284